=== PATIENT | male | born 1960 | race Two or more races ===

== ENCOUNTER 2019-04-09 10:12 | Inpatient (IN) | payer MEDICARE, MEDICAID ==
[~2019-04-09] VITALS: Ht 165.1 cm; Wt 50.8 kg
[2019-04-09] MEDS ORDERED: Omnipaque-300 100ml vial INJ PRN (10:15)
--- NOTE | 2019-04-09 10:16 | NUR ---
ED Nurse Note: Pt brought in by ambulance from the [facility] d/t nausea and vomiting since this morning. Pt denies abd pain. Respirations even and unlabored on room air. Vitals stable as documented. Addendum: 04/09/19 at 1110 by BDUTTON Pt c/o of abdominal pain
[2019-04-09 10:20] VITALS: BP 109/69
--- NOTE | 2019-04-09 10:30 | Emergency Room Report ---
History of Present Illness General Chief Complaint: Abdominal Pain Source: Patient, EMS Present Illness HPI Patient is a 59-year-old male past medical history of schizophrenia brought in by EMS for abdominal pain. Patient complains of 2 years of abdominal pain, nausea and vomiting. He denies any fever or chills. He cannot tell me why he specifically came in today. He denies any chest pain or shortness of breath. He denies any diarrhea or constipation. He denies any dysuria or hematuria. Allergies: Coded Allergies: No Known Allergies (Unverified , 04/09/19) Patient History Past Medical History: other - Schizophrenia Past Surgical History: kelle Social History: Reports: drug use - Marijuana use Review of Systems All Other Systems: negative except mentioned in HPI Physical Exam Vital Signs Date Time Temp Pulse Resp B/P (MAP) Pulse Ox O2 Delivery O2 Flow Rate FiO2 04/09/19 10:04 97.9 117 18 116/76 (89) 98 Room Air Sp02 EP Interpretation: reviewed, normal General Appearance: no apparent distress, alert, GCS 15, non-toxic, other - poorly groomed Head: normocephalic, atraumatic Eyes: bilateral eye normal inspection, bilateral eye PERRL ENT: hearing grossly normal, normal pharynx, no angioedema, normal voice, other - poor dentition Neck: full range of motion, supple/symm/no masses Respiratory: chest non-tender, lungs clear, normal breath sounds, speaking full sentences Cardiovascular #1: tachycardia Gastrointestinal: normal bowel sounds, soft, non-distended, no guarding, no rebound, other - Mild epigastric tenderness to palpation with no guarding or rebound old laparoscopic surgical incisions that are well-healed Rectal: deferred Musculoskeletal: back normal, normal range of motion, calf tenderness, gait/ station normal, non-tender Neurologic: alert, motor strength/tone normal, oriented x3, sensory intact, responsive, speech normal Skin: no rash Lymphatic: no adenopathy Procedures Critical Care Time Critical Care Time Total critical care time: Approximately 35 minutes. Due to a high probability of clinically significant, life threatening deterioration, the patient required my highest level of preparedness to intervene emergently and I personally spent this critical care time directly and personally managing the patient. This critical care time included obtaining a history; examining the patient; pulse oximetry; ordering and review of studies; arranging urgent treatment with development of a management plan; evaluation of patient's response to treatment ; frequent reassessment; and, discussions with other providers.This critical care time was performed to assess and manage the high probability of imminent, life-threatening deterioration that could result in multi-organ failure. It was exclusive of separately billable procedures and treating other patients and teaching time. Please see MDM section and the rest of the note for further information on patient assessment and treatment. Medical Decision Making Diagnostic Impression: Primary Impression: Upper GI bleed Additional Impression: Hypokalemia ER Course 1122 am, patient had hematemesis in the emergency room. Patient given 4 mg of IV Zofran. Patient given 80 mg of IV Protonix and started on 8 mg of Protonix per hour. Due to GI bleed patient also given 2 g of Rocephin. 1153am patient found to be hypokalemic. I have ordered for 40 mEq of IV potassium chloride. 105pm patient has had no further episodes of vomiting since the first time here. CT of the abdomen pelvis has been ordered to rule out any acute intra- abdominal pathology and is pending at the time of admission. Patient's tachycardia has improved. Patient will be admitted to a stepdown unit under the care of Dr. Cartagena Laboratory Tests Test 04/09/19 10:30 White Blood Count 12.9 K/UL (4.8-10.8) H Red Blood Count 3.11 M/UL (4.70-6.10) L Hemoglobin 9.1 G/DL (14.2-18.0) L Hematocrit 27.4 % (42.0-52.0) L Mean Corpuscular Volume 88 FL (80-99) Mean Corpuscular Hemoglobin 29.2 PG (27.0-31.0) Mean Corpuscular Hemoglobin Concent 33.2 G/DL (32.0-36.0) Red Cell Distribution Width 14.4 % (11.6-14.8) Platelet Count 401 K/UL (150-450) Mean Platelet Volume 4.9 FL (6.5-10.1) L Neutrophils (%) (Auto) 78.8 % (45.0-75.0) H Lymphocytes (%) (Auto) 10.1 % (20.0-45.0) L Monocytes (%) (Auto) 10.4 % (1.0-10.0) H Eosinophils (%) (Auto) 0.0 % (0.0-3.0) Basophils (%) (Auto) 0.7 % (0.0-2.0) Prothrombin Time 10.1 SEC (9.30-11.50) Prothrombin Time INR 0.9 (0.9-1.1) Activated Partial Thromboplast Time 23 SEC (23-33) Urine Color Yellow Urine Appearance Slightly cloudy Urine pH 8 (4.5-8.0) Urine Specific [place] 1.015 (1.005-1.035) Urine Protein Negative (NEGATIVE) Urine Glucose (UA) Negative (NEGATIVE) Urine Ketones Negative (NEGATIVE) Urine Blood Negative (NEGATIVE) Urine Nitrite Negative (NEGATIVE) Urine Bilirubin Negative (NEGATIVE) Urine Urobilinogen 4 MG/DL (0.0-1.0) H Urine Leukocyte Esterase 1+ (NEGATIVE) H Urine RBC 2-4 /HPF (0 - 0) H Urine WBC 0-2 /HPF (0 - 0) Urine Squamous Epithelial Cells Occasional /LPF Urine Amorphous Sediment Moderate /LPF (NONE) H Urine Bacteria Occasional /HPF (NONE) Sodium Level 135 MMOL/L (136-145) L Potassium Level 2.7 MMOL/L (3.5-5.1) *L Chloride Level 91 MMOL/L (98-107) L Carbon Dioxide Level 34 MMOL/L (21-32) H Anion Gap 10 mmol/L (5-15) Blood Urea Nitrogen 23 mg/dL (7-18) H Creatinine 0.8 MG/DL (0.55-1.30) Estimate Glomerular Filtration Rate > 60 mL/min (>60) Glucose Level 121 MG/DL (74-106) H Calcium Level 8.6 MG/DL (8.5-10.1) Magnesium Level 2.2 MG/DL (1.8-2.4) Total Bilirubin 0.2 MG/DL (0.2-1.0) Aspartate Amino Transferase (AST) 30 U/L (15-37) Alanine Aminotransferase (ALT) 22 U/L (12-78) Alkaline Phosphatase 75 U/L (46-116) Total Protein 7.3 G/DL (6.4-8.2) Albumin 3.2 G/DL (3.4-5.0) L Globulin 4.1 g/dL Albumin/Globulin Ratio 0.8 (1.0-2.7) L Lipase 110 U/L (73-393) Urine Opiates Screen Negative (NEGATIVE) Urine Barbiturates Screen Negative (NEGATIVE) Phencyclidine (PCP) Screen Negative (NEGATIVE) Urine Amphetamines Screen Negative (NEGATIVE) Urine Benzodiazepines Screen Positive (NEGATIVE) H Urine Cocaine Screen Negative (NEGATIVE) Urine Marijuana (THC) Screen Negative (NEGATIVE) EKG Diagnostic Results EKG Time: 10:26 EP Interpretation: MD Laverne Rate: normal Rhythm: NSR ST Segments: no acute changes ASA given to the pt in ED: No Rhythm Strip Diag. Results Rhythm Strip Time: 10:58 EP Interpretation: yes Rate: 98 Rhythm: NSR, no PVC's, no ectopy Last Vital Signs Date Time Temp Pulse Resp B/P (MAP) Pulse Ox O2 Delivery O2 Flow Rate FiO2 04/09/19 10:04 97.9 117 18 116/76 (89) 98 Room Air Disposition: ADMITTED INPATIENT Condition: Critical Physician Consult: Dr. Cartagena, hospitalist to admit to [facility] Mena Galloway M.D. Apr 09, 2019 10:30
--- NOTE | 2019-04-09 10:40 | NUR ---
ED Nurse Note: Pt had an episode of vomiting dark red/black vomit with two small bright red clots. ED MD made aware.
[2019-04-09] MEDS ORDERED: Pantoprazole 80 MG in NS 250 ML IV ONE (10:45)
[2019-04-09] MEDS ORDERED: Pantoprazole Inj IVP ONE (10:45)
[2019-04-09 11:02] LABS: BASOPHILS % (AUTO) 0.7 % (0.0-2.0); HEMATOCRIT 27.4 % (42.0-52.0); HEMOGLOBIN 9.1 G/DL (14.2-18.0); LYMPHOCYTES % (AUTO) 10.1 % (20.0-45.0); MEAN CORPUSCULAR VOLUME 88 FL (80-99); MONOCYTES % (AUTO) 10.4 % (1.0-10.0); NEUTROPHILS % (AUTO) 78.8 % (45.0-75.0); PLATELET COUNT 401 K/UL (150-450); RED BLOOD COUNT 3.11 M/UL (4.70-6.10); RED CELL DISTRIBUTION WIDTH 14.4 % (11.6-14.8); WHITE BLOOD COUNT 12.9 K/UL (4.8-10.8)
[2019-04-09 11:05] LABS: APPEARANCE,URINE SLIGHTLY CLOUDY; BILIRUBIN, URINE NEGATIVE (NEGATIVE); GLUCOSE, URINE (UA) NEGATIVE (NEGATIVE); KETONES,URINE NEGATIVE (NEGATIVE); LEUKOCYTE ESTERASE ,URINE 1+ (NEGATIVE); NITRITE,URINE NEGATIVE (NEGATIVE); PH,URINE 8 (4.5-8.0); PROTEIN,URINE NEGATIVE (NEGATIVE); UROBILINOGEN,URINE 4 MG/DL (0.0-1.0)
[2019-04-09 11:15] LABS: COLOR,URINE YELLOW
[2019-04-09 11:16] LABS: INR 0.9 (0.9-1.1)
[2019-04-09] MEDS ORDERED: cefTRIAXone 2 GM in NS 55 ML IVPB ONE (11:30)
[2019-04-09 11:48] LABS: ALANINE AMINOTRANSFERASE 22 U/L (12-78); ALBUMIN 3.2 G/DL (3.4-5.0); ALBUMIN/GLOBULIN RATIO 0.8 (1.0-2.7); ALKALINE PHOSPHATASE 75 U/L (46-116); ANION GAP 10 mmol/L (5-15); ASPARTATE AMINO TRANSFERASE 30 U/L (15-37); BILIRUBIN,TOTAL 0.2 MG/DL (0.2-1.0); BLOOD UREA NITROGEN 23 mg/dL (7-18); CALCIUM 8.6 MG/DL (8.5-10.1); CARBON DIOXIDE 34 MMOL/L (21-32); CHLORIDE 91 MMOL/L (98-107); CREATININE 0.8 MG/DL (0.55-1.30); SODIUM 135 MMOL/L (136-145)
[2019-04-09 11:50] LABS: POTASSIUM 2.7 MMOL/L (3.5-5.1)
--- NOTE | 2019-04-09 13:23 | NUR ---
NURSE NOTES: Report given to SADE Benson in SDU
--- NOTE | 2019-04-09 13:49 | NUR ---
ED Nurse Note: Pt transferred safely to SDU without incident.
[2019-04-09 14:00] VITALS: BP 126/77
--- NOTE | 2019-04-09 14:00 | NUR ---
NURSE NOTES: Received report from SADE Matamoros @ ER. The patient's belongings checked with the patient and two nurse and signed by two nurses. Unable to obtain medical, surgical, allergy, and social history as the patient refused to answer the question. Admitting EKG strip obtained. Unable to do medication reconciliation @ ER and SDU as the patient does not answer the question. The patient has R FA 20G intact and patent. No POLST noted at this time. Initial vital signs taken and notified to Dr. Ferris. Paged Dr. Ferris for admission order. Will continue plan of care.
--- NOTE | 2019-04-09 14:03 | Diagnostic Imaging Report ---
Clinical Indication: Abdominal pain Technique: No oral contrast utilized, per emergency room physician request IV administration nonionic contrast. Venous phase spiral acquisition obtained through the abdomen and pelvis. Multiplanar reconstructions were generated. Total dose length product 162 mGycm. CTDIvol(s) 3 mGy. Dose reduction achieved using automated exposure control Comparison: none Findings: Lack of enteric contrast administration limits assessment of the GI tract. There is a small to moderate-sized sliding-type hiatal hernia. The stomach is markedly distended with food and gas. The anatomy of the gastric outlet is not well visualized, but the duodenum is nondilated. No definite obstructive lesion is evident. There are mildly dilated gas-filled jejunal loops in the left upper quadrant. No definite transition point is evident, although the distal ileum appears to be nondilated.. There is mild rectal distention by feces, rectal diameter 6 cm. There is considerable retained stool throughout the colon. No definite evidence of colonic diverticulosis or diverticulitis. The appendix is not definitely visualized, but there are no definite findings to suggest acute appendicitis. There is a small fat-containing right inguinal hernia. There is slight skin thickening and infiltration of the subcutaneous fat in the retrococcygeal region and at the inferior aspect of the inner gluteal fold right of midline. There may be slight soft tissue irregularity as well. The liver demonstrates multiple cysts, as well as a few subcentimeter low-attenuation lesions which are too small to characterize. The gallbladder, bile ducts, pancreas, spleen, adrenals are unremarkable. The kidneys demonstrate a cyst on the left and bilateral subcentimeter low-attenuation lesions which are too small to characterize. No renal or ureteral calculi, hydronephrosis, or hydroureter. No retroperitoneal or mesenteric mass or adenopathy. No pelvic mass or adenopathy. There is mild bladder wall thickening. The included lung bases demonstrate some vague groundglass opacity bilaterally, as well as some scarring at the left lung base. The bones demonstrate mild degenerative changes of the lumbosacral junction. Impression: Limited assessment of the GI tract, due to lack of enteric contrast demonstration Markedly distended stomach. Suspect functional in nature given absence of obvious obstructing lesion, although occult obstructive lesion at the level of pylorus cannot be ruled out Mildly distended proximal small bowel loops. There is no definite transition point, but distal small bowel loops are nondistended. Likewise suspect functional in nature or on the basis of enteritis changes, but the possibility of partial obstruction at the level of the mid small bowel should be considered. Considerable colonic stool retention, possible mild rectal fecal impaction Slight soft tissue thickening in the retrococcygeal buttock region, could indicate early decubitus changes. Correlate with clinical findings Hepatic and left renal cysts. Subcentimeter low-attenuation renal and liver lesions, too small to characterize, most likely benign simple cysts. No further follow-up necessary Vague basilar pulmonary parenchymal groundglass opacity, nonspecific, could represent mild edema, COPD changes, inflammatory or postinflammatory changes, among other possibilities Evidence of chronic scarring at the left lung base Other findings as noted, including small fat-containing right inguinal hernia, small to moderate hiatal hernia, degenerative spondylosis The CT scanner at [facility] is accredited by the [employer] and the scans are performed using protocols designed to limit radiation exposure to as low as reasonably achievable to attain images of sufficient resolution adequate for diagnostic evaluation.
[2019-04-09] MEDS ORDERED: Sodium Chloride 550 ML IV SCH (14:30)
--- NOTE | 2019-04-09 15:00 | NUR ---
NURSE NOTES: Dr. Ferris @ the nurses' station. Notified Dr. Ferris regarding new admission and reported initial vital signs and abnormal labs including hemoglobin, WBC, Potassium, positive Benzodiazepine, and CT of abdomen and pelvis report. Obtained admission order. Will carry out the order as soon as possible. Will continue plan of care.
--- NOTE | 2019-04-09 15:11 | Diagnostic Imaging Report ---
Indication: Chest pain Technique: One view of the chest Comparison: none Findings: There is a 2 cm irregular opacity at the left lung base. The remainder of the lungs and pleural spaces are clear. The heart size is normal. The aorta is calcified. Impression: Left basilar opacity, demonstrated on subsequent CT scan to represent an area of scarring No acute process otherwise Findings discussed by phone with Dr. Fernandez at the time of interpretation
[2019-04-09] MEDS ORDERED: LORazepam Inj 2mg/ml 1ml IV PRN (15:30)
[2019-04-09 16:00] VITALS: BP 114/74
--- NOTE | 2019-04-09 16:00 | NUR ---
NURSE NOTES: The patient is stable without acute distress or shortness of breath. Will continue plan of care.
--- NOTE | 2019-04-09 18:00 | NUR ---
NURSE NOTES: The patient is stable without acute distress or shortness of breath. Will continue plan of care.
--- NOTE | 2019-04-09 19:20 | NUR ---
NURSE NOTES: Pt report received from CAROL Connors RN. pt remains stable. pt is alert and oriented times 3. pt is on Room air, satting at 98%, no acute signs symptoms of resp distress noted. pt is on casing cleaner showing NSR, no acute signs symptoms of cardiac distress noted. pt bed is low, locked, armed, bed rails up times 3, call light within reach. will follow plan of care.
--- NOTE | 2019-04-09 19:20 | NUR ---
HAND-OFF: Report given to SADE Ocampo. The patient is stable without acute distress or shortness of breath. The patient's bed in the lowest position, call light in reach, and fall and aspiration precaution reinforced. IV site intact and patent. Endorsed plan of care.
--- NOTE | 2019-04-09 19:52 | History and Physical ---
History of Present Illness General Date patient seen: Apr 09, 2019 Reason for Hospitalization: Abdominal Pain Present Illness HPI Is a 59-year-old male with a history of schizophrenia, and homelessness who presents with abdominal pain for the past 2 years and worsening over the past few days. Patient is a poor historian and refuses to answer further questions. He does endorse hematemesis a few times. He denies having any melena or hematochezia. He has never had this before. In the ER the patient was tachycardic to 117 rest of vital signs stable. Patient had one episode of hematemesis emesis with blood clots. CBC showed leukocytosis of 12.9 hemoglobin 9.1. No prior labs to compare to. Potassium low at 2.7 sodium 135. LFTs normal urinalysis with trace of esterase (patient denies symptoms of dysuria frequency or urgency.) Allergies none Medications none Past medical history see HPI Social history homeless Denies tobacco alcohol or drug use Surgical history unknown Family history unknown Allergies: Coded Allergies: No Known Allergies (Unverified , 04/09/19) Patient History Healthcare decision maker Resuscitation status Full Code Advanced Directive on File Review of Systems All Other Systems: negative except mentioned in HPI Physical Exam Last 24 Hour Vital Signs Date Time Temp Pulse Resp B/P (MAP) Pulse Ox O2 Delivery O2 Flow Rate FiO2 04/09/19 16:00 Room Air 04/09/19 16:00 97.3 89 18 114/74 (87) 97 89 04/09/19 15:31 84 04/09/19 14:31 Room Air 04/09/19 14:00 Room Air 04/09/19 14:00 97.9 85 18 126/77 (93) 99 85 04/09/19 13:51 85 04/09/19 13:50 98.0 75 18 121/74 98 Room Air 04/09/19 10:20 97.9 79 18 109/69 98 Room Air 04/09/19 10:20 79 18 Room Air 04/09/19 10:04 97.9 117 18 116/76 (89) 98 Room Air Laboratory Tests Test 04/09/19 10:30 White Blood Count 12.9 K/UL (4.8-10.8) H Red Blood Count 3.11 M/UL (4.70-6.10) L Hemoglobin 9.1 G/DL (14.2-18.0) L Hematocrit 27.4 % (42.0-52.0) L Mean Corpuscular Volume 88 FL (80-99) Mean Corpuscular Hemoglobin 29.2 PG (27.0-31.0) Mean Corpuscular Hemoglobin Concent 33.2 G/DL (32.0-36.0) Red Cell Distribution Width 14.4 % (11.6-14.8) Platelet Count 401 K/UL (150-450) Mean Platelet Volume 4.9 FL (6.5-10.1) L Neutrophils (%) (Auto) 78.8 % (45.0-75.0) H Lymphocytes (%) (Auto) 10.1 % (20.0-45.0) L Monocytes (%) (Auto) 10.4 % (1.0-10.0) H Eosinophils (%) (Auto) 0.0 % (0.0-3.0) Basophils (%) (Auto) 0.7 % (0.0-2.0) Prothrombin Time 10.1 SEC (9.30-11.50) Prothromb Time International Ratio 0.9 (0.9-1.1) Activated Partial Thromboplast Time 23 SEC (23-33) Urine Color Yellow Urine Appearance Slightly cloudy Urine pH 8 (4.5-8.0) Urine Specific [place] 1.015 (1.005-1.035) Urine Protein Negative (NEGATIVE) Urine Glucose (UA) Negative (NEGATIVE) Urine Ketones Negative (NEGATIVE) Urine Blood Negative (NEGATIVE) Urine Nitrite Negative (NEGATIVE) Urine Bilirubin Negative (NEGATIVE) Urine Urobilinogen 4 MG/DL (0.0-1.0) H Urine Leukocyte Esterase 1+ (NEGATIVE) H Urine RBC 2-4 /HPF (0 - 0) H Urine WBC 0-2 /HPF (0 - 0) Urine Squamous Epithelial Cells Occasional /LPF Urine Amorphous Sediment Moderate /LPF (NONE) H Urine Bacteria Occasional /HPF (NONE) Sodium Level 135 MMOL/L (136-145) L Potassium Level 2.7 MMOL/L (3.5-5.1) *L Chloride Level 91 MMOL/L (98-107) L Carbon Dioxide Level 34 MMOL/L (21-32) H Anion Gap 10 mmol/L (5-15) Blood Urea Nitrogen 23 mg/dL (7-18) H Creatinine 0.8 MG/DL (0.55-1.30) Estimat Glomerular Filtration Rate > 60 mL/min (>60) Glucose Level 121 MG/DL (74-106) H Calcium Level 8.6 MG/DL (8.5-10.1) Magnesium Level 2.2 MG/DL (1.8-2.4) Total Bilirubin 0.2 MG/DL (0.2-1.0) Aspartate Amino Transf (AST/SGOT) 30 U/L (15-37) Alanine Aminotransferase (ALT/SGPT) 22 U/L (12-78) Alkaline Phosphatase 75 U/L (46-116) Total Protein 7.3 G/DL (6.4-8.2) Albumin 3.2 G/DL (3.4-5.0) L Globulin 4.1 g/dL Albumin/Globulin Ratio 0.8 (1.0-2.7) L Lipase 110 U/L (73-393) Urine Opiates Screen Negative (NEGATIVE) Urine Barbiturates Screen Negative (NEGATIVE) Phencyclidine (PCP) Screen Negative (NEGATIVE) Urine Amphetamines Screen Negative (NEGATIVE) Urine Benzodiazepines Screen Positive (NEGATIVE) H Urine Cocaine Screen Negative (NEGATIVE) Urine Marijuana (THC) Screen Negative (NEGATIVE) Height (Feet): 5 Height (Inches): 6.00 Weight (Pounds): 112 Medications Current Medications Medications (Trade) Dose Ordered Sig/Raheel Route PRN Reason Start Time Stop Time Status Last Admin Dose Admin Dextrose (Dextrose 50%) 25 ml Q30M PRN IV Hypoglycemia 04/09/19 14:30 05/09/19 14:29 Dextrose (Dextrose 50%) 50 ml Q30M PRN IV Hypoglycemia 04/09/19 14:30 05/09/19 14:29 Dextrose/Sodium Chloride 1,000 ml @ 75 mls/hr [id number] IV 04/09/19 20:00 05/09/19 19:59 Iohexol (OMNIPAQUE-300 100ml) 100 ml NOW PRN INJ Radiology Procedure 04/09/19 10:15 04/11/19 10:10 Lorazepam (Ativan 2mg/ml 1ml) 0.5 mg Q4H PRN IV Agitation 04/09/19 15:30 04/16/19 15:29 Ondansetron HCl (Zofran) 4 mg Q6H PRN IVP Nausea & Vomiting 04/09/19 15:30 05/09/19 15:29 Pantoprazole (Protonix) 40 mg EVERY 12 HOURS IVP 04/09/19 21:00 05/09/19 20:59 Pantoprazole 80 mg/Sodium Chloride 250 ml @ 25 mls/hr Q10H ONCE IV 04/09/19 10:45 04/09/19 20:44 04/09/19 10:50 Objective Narrative General: WDWN male in NAD, A&O x 2. Very anxious appearing. HEENT: Normocephalic cephalic atraumatic, pupils equal round reactive to light and accommodation, nares patent and no symmetrical, no tonsillar exudates, mucous membranes moist CV: Regular rate regular rhythm, no murmurs, rubs, or gallops Pulm: Lungs clear to auscultation bilaterally. No wheezes, rhonchi, or rales GI: Soft, tenderness to deep palpation of left abdomen, nondistended, bowel sounds present Neuro: CN 2-12 intact bilaterally, no focal signs. Ext: No lower extremity edema bilaterally Skin: no rashes lesions or ulcers Msk: Joints symmetrical in upper extremity and lower extremity bilaterally, no joint swelling. Lymph: No lymphadenopathy in upper extremity and lower extremity Assessment/Plan Assessment/Plan: Is a 59-year-old male with a past medical history of schizophrenia and hypothyroidism presenting with acute on chronic abdominal pain and hematemesis. CT abdomen also shows possible small bowel obstruction and constipation. #Acute on chronic abdominal pain #Hematemesis #Suspect acute blood loss anemia 2/2 hematemesis #Sepsis (tachycardia and WBC) suspected 2/2 GI etiology #Possible small bowel obstruction -Telemetry -Stepdown unit -GI consult: Dr. Ojeda -General surgery consult: Dr. Barker -N.p.o. -Trend CBC every 8 hours -Transfuse for hemoglobin less than 7 -IV fluids -Protonix 40 mg IV twice daily -Iron studies and ferritin -Zosyn (04/09 - ) #Hypokalemia -Replete PRN #hyponatremia, suspect hypovolemic -IV fluids #Schizophrenia -Psych consult -Patient denying alcohol use but patient is a poor historian will initiate CIWAA protocol #Homelessness -Social work consult #Constipation -Bowel regimen #Suspect protein calorie malnutrition -Nutrition consult FENPPX DVTPPX: SCDs, no chemoppx due to bleed GI PPX: Protonix Fluids: IV fluids Diet: N.p.o. Lines: None PT/OT: Pending Code status: Full code Dispo: Pending Reason for Continued Hospitalization: GI bleed 73 minutes spent on this encounter. Discussed with RN, GI, general surgery. > 50 % spent on counseling and care coordination. Time of note may not reflect time patient was seen. Philippe Bourne D.O. Apr 09, 2019 19:52
[2019-04-09 20:00] VITALS: BP 107/64
[2019-04-09 20:26] LABS: HEMATOCRIT 21.9 % (42.0-52.0); HEMOGLOBIN 7.3 G/DL (14.2-18.0); MEAN CORPUSCULAR VOLUME 87 FL (80-99); PLATELET COUNT 329 K/UL (150-450); RED BLOOD COUNT 2.51 M/UL (4.70-6.10); RED CELL DISTRIBUTION WIDTH 14.2 % (11.6-14.8); WHITE BLOOD COUNT 8.7 K/UL (4.8-10.8)
[2019-04-09 20:40] LABS: ANION GAP 7 mmol/L (5-15); BLOOD UREA NITROGEN 15 mg/dL (7-18); CALCIUM 7.9 MG/DL (8.5-10.1); CARBON DIOXIDE 31 MMOL/L (21-32); CHLORIDE 97 MMOL/L (98-107); CREATININE 0.5 MG/DL (0.55-1.30); POTASSIUM 3.4 MMOL/L (3.5-5.1); SODIUM 135 MMOL/L (136-145)
--- NOTE | 2019-04-09 21:15 | Consultation ---
DATE OF CONSULTATION: 04/09/2019 CONSULTING PHYSICIAN: Mike Ojeda M.D. CHIEF COMPLAINT: Abdominal pain, coffee-ground emesis. HISTORY OF PRESENT ILLNESS: The patient is a poor historian. He presented to the hospital complaining of abdominal pain for two years, but according to the ER doctor, he vomited blood in the ER, so GI consult is requested for evaluation. PAST MEDICAL HISTORY: Schizophrenia. PAST SURGICAL HISTORY: Cholecystectomy. ALLERGIES: No known allergies. MEDICATIONS: Please see medication reconciliation list. SOCIAL HISTORY: The patient uses marijuana. Denies any IV drug abuse. Denies any tobacco abuse. Denies any alcohol abuse. PHYSICAL EXAMINATION: VITAL SIGNS: Temperature 97.9, pulse 79, respiration 18, and blood pressure 100/69. HEENT: Normocephalic and atraumatic. Sclerae are anicteric. NECK: Supple. No evidence of obvious lymphadenopathy. CARDIOVASCULAR: Regular rate and rhythm. Plus S1-S2. LUNGS: Clear to auscultation bilaterally based on the supine exam. ABDOMEN: Soft. Bowel sounds are present. Minimum diffuse abdominal tenderness to palpation. No rebound. No guarding. No peritoneal sign. EXTREMITIES: No cyanosis, no clubbing, no edema. LABORATORY DATA: White count is 12, hemoglobin 9, hematocrit 27, and platelet count 401,000. Chem 7 - sodium 135, potassium 2.7, BUN 23, and creatinine 0.8. INR is 0.9. ASSESSMENT AND PLAN: This is a 59-year-old male with coffee-ground emesis and significant anemia. Plan is to monitor H and H, transfuse as needed to keep hemoglobin above 7. The patient to be on Protonix drip. Plan to do endoscopy tomorrow for evaluation of upper GI bleeding. Mike Ojeda M.D. DR: LEONELA JOB#: [id number] CC:
[2019-04-09] MEDS: D5NS 1,000 ML IV SCH (21:41)
[2019-04-09] MEDS: Pantoprazole Inj IVP SCH (21:41)
[2019-04-10] VITALS: BP 100/65
[2019-04-10] MEDS: Piperacillin/Tazobactam 3.375 GM in NS 110 ML IVPB SCH ×4 (00:22→23:12)
[2019-04-10 04:00] VITALS: BP 105/61
[2019-04-10 04:44] LABS: HEMATOCRIT 22.3 % (42.0-52.0); HEMOGLOBIN 7.5 G/DL (14.2-18.0); MEAN CORPUSCULAR VOLUME 88 FL (80-99); PLATELET COUNT 324 K/UL (150-450); RED BLOOD COUNT 2.55 M/UL (4.70-6.10); RED CELL DISTRIBUTION WIDTH 14.4 % (11.6-14.8); WHITE BLOOD COUNT 6.1 K/UL (4.8-10.8)
[2019-04-10 05:14] LABS: PHOSPHORUS 2.4 MG/DL (2.5-4.9)
[2019-04-10 05:26] LABS: ALANINE AMINOTRANSFERASE 15 U/L (12-78); ALBUMIN 2.4 G/DL (3.4-5.0); ALBUMIN/GLOBULIN RATIO 0.7 (1.0-2.7); ALKALINE PHOSPHATASE 58 U/L (46-116); ANION GAP 6 mmol/L (5-15); ASPARTATE AMINO TRANSFERASE 18 U/L (15-37); BILIRUBIN,TOTAL 0.3 MG/DL (0.2-1.0); BLOOD UREA NITROGEN 12 mg/dL (7-18); CALCIUM 7.8 MG/DL (8.5-10.1); CARBON DIOXIDE 29 MMOL/L (21-32); CHLORIDE 100 MMOL/L (98-107); CREATININE 0.6 MG/DL (0.55-1.30); FERRITIN 20 NG/ML (8-388); POTASSIUM 3.1 MMOL/L (3.5-5.1); SODIUM 135 MMOL/L (136-145)
[2019-04-10 05:50] LABS: % IRON SATURATION 5 % (15-50); IRON 12 ug/dL (50-175); TOTAL IRON BINDING CAPACITY 249 ug/dL (250-450)
--- NOTE | 2019-04-10 07:25 | NUR ---
HAND-OFF: Report given to ROB Connors RN DAY SHIFT SDU. Pt remains stable.
--- NOTE | 2019-04-10 07:30 | NUR ---
NURSE NOTES: Received report from SADE Patel. Patient is sleeping in bed in stable condition. Pt is on room air. No s/sx of SOB, breathing is even and unlabored. Observed no presence of pain or discomfort at this time. Bed is in lowest position, brakes engaged. Call light is kept within easy reach. Will continue to monitor patient.
[2019-04-10 08:00] VITALS: BP 91/74
--- NOTE | 2019-04-10 08:00 | NUR ---
NURSE NOTES: During morning assessment, patient voiced to this nurse that they would like to leave hospital against medical advice and refusing endoscopy procedure today. Patient is alert and oriented x 4, stated first and last name, stated , stated location, forgetful of current president. Patient cannot state reason for being in hospital. Noted. Will contact Dr. Bourne.
--- NOTE | 2019-04-10 08:10 | NUR ---
NURSE NOTES: Patient is noted fully clothed in own clothing, states to this nurse they would like to leave hospital now and will sign Against Medical Advice form Noted. Will contact Dr. Bourne.
--- NOTE | 2019-04-10 08:15 | NUR ---
NURSE NOTES: Called and spoke with Dr. Bourne and reported that patient is refusing GI procedure today and would like to leave this hospital Against Medical Advice. Dr. Bourne acknowledged and informed this nurse that patient does not have capacity to make medical decisions at this time. Ordered Dr. Reed as psyche consult and sitter at bedside. Order entered, noted, and carried out. Will continue to monitor patient.
--- NOTE | 2019-04-10 08:20 | NUR ---
NURSE NOTES: Contacted and informed Dr. Reed of situation with patient and new psyche consult per Dr. Bourne. Dr. Reed acknowledged. No new orders given at this time. Per Dr. Reed will see patient.
--- NOTE | 2019-04-10 08:30 | NUR ---
NURSE NOTES: Called and informed Nurse Real Estate Assistant the need for sitter at bedside. Nurse hydrochloric area supervisor acknowledged. Sitter placed at bedside to monitor for safety. Noted.
[2019-04-10] MEDS: D5NS 1,000 ML IV SCH ×2 (08:48→21:42)
[2019-04-10] MEDS: Pantoprazole Inj IVP SCH ×2 (08:48→21:00)
--- NOTE | 2019-04-10 08:49 | NUR ---
NURSE NOTES: Patient refused all morning medications. Explained to patient risks and possible negative outcomes of not taking medications. Pt continued to refuse. Respected patient rights. Will continue to monitor patient.
--- NOTE | 2019-04-10 09:00 | NUR ---
NURSE NOTES: Patient noted with blood pressure of 91/74 HR 81. Inquired patient if this nurse may reassess blood pressure, patient refused. Explained to patient risks and possible negative outcomes of not assessing blood pressure. Patient continued to refuse x 3. Respected patient rights. Will continue to monitor patient.
--- NOTE | 2019-04-10 09:56 | NUR ---
DATA CENTER TECHNICIAN CONSULT SW received a consult for homelessness. SW met w/ pt and assessed pt's needs. Pt presents as A&O 3x, restless and tangential. Pt resides alone at [address], [place].Pt states there is no one to verify his current location. Pt provided an emergency contact: pt's sister Chayito [phone] - unknown area code. Pt did not provide verbal consent to contact Chayito. SW was unable to verify such location. Pt states his 's name is Isabel and they live separately. Pt was unable to recall Isabel's contact number. Pt denies homelessness and wants AMA. SW explained the risks of AMA. Pt verbalized understanding. Pt states he has money with him and he will take a bus back to [place]. Pt is ambulatory w/o DME. Pt denies hx of mental illness and also denies SI/HI. Pt does not share any concern/needs at this time. SW to F/U as needed. Signed: 04/10/19 at 1001 by BENTLEY OTERO <Co-Signature Required>
--- NOTE | 2019-04-10 10:20 | NUR ---
NURSE NOTES: Dr. Bourne at patient bedside, spoke to patient regarding medical needs. Dr. Bourne ordered to continue monitoring and have sitter at bedside. Reported to Dr. Bourne that patient had blood pressure of 91/74 this morning and patient refused blood pressure assessment, also patient refused ordered potassium chloride. Dr. Bourne acknowledged and gave no new orders regarding blood pressure and potassium replacement. Noted. Patient noted pacing in room, is consolable and follows commands. Sitter at bedside monitoring patient. Noted.
--- NOTE | 2019-04-10 10:20 | NUR ---
NURSE NOTES: Patient refused ordered potassium chloride. Noted.
[2019-04-10] MEDS ORDERED: LORazepam Inj 2mg/ml 1ml IV SCH (10:30)
--- NOTE | 2019-04-10 11:00 | NUR ---
NURSE NOTES: Patient refused Ativan 2 mg IV x 1. Made Dr. Bourne aware. Noted.
--- NOTE | 2019-04-10 11:45 | NUR ---
NURSE NOTES: Dr. Ojeda at nurse station. Informed this nurse that they spoke with patient regarding GI procedure and patient refused. Noted. Dr. Ojeda started patient on clear liquid diet. Order entered, noted, and carried out.
--- NOTE | 2019-04-10 12:09 | General Progress Note ---
Assessment/Plan Problem List: (1) Homelessness ICD Codes: Z59.0 - Homelessness SNOMED: 06796792 (2) Schizophrenia ICD Codes: F20.9 - Schizophrenia, unspecified SNOMED: 55329787 (3) Acute blood loss anemia ICD Codes: D62 - Acute posthemorrhagic anemia SNOMED: 005854699 (4) Upper GI bleed ICD Codes: K92.2 - Gastrointestinal hemorrhage, unspecified SNOMED: 00811510 Assessment/Plan: ppi iv iron monitor H&H patient is refusing to go down for EGD pending psych consult Subjective ROS Limited/Unobtainable: Yes Allergies: Coded Allergies: No Known Allergies (Unverified , 04/09/19) Objective Last 24 Hour Vital Signs Date Time Temp Pulse Resp B/P (MAP) Pulse Ox O2 Delivery O2 Flow Rate FiO2 04/10/19 08:00 Room Air 04/10/19 08:00 97.7 81 20 91/74 (80) 100 81 04/10/19 04:00 Room Air 04/10/19 04:00 97.9 82 20 105/61 (76) 99 82 04/10/19 04:00 76 04/10/19 00:00 75 04/10/19 00:00 98.2 80 19 100/65 (77) 99 80 04/10/19 00:00 Room Air 04/09/19 20:00 Room Air 04/09/19 20:00 98.2 76 18 107/64 (78) 98 76 04/09/19 20:00 71 04/09/19 16:00 Room Air 04/09/19 16:00 97.3 89 18 114/74 (87) 97 89 04/09/19 15:31 84 04/09/19 14:31 Room Air 04/09/19 14:00 Room Air 04/09/19 14:00 97.9 85 18 126/77 (93) 99 85 04/09/19 13:51 85 04/09/19 13:50 98.0 75 18 121/74 98 Room Air Intake and Output 04/09/19 04/10/19 19:00 07:00 Intake Total 0 ml 935.0 ml Output Total 401 ml Balance -401 ml 935.0 ml Intake Oral 0 ml IV Total 935.0 ml Output Urine Total 1 ml Emesis 400 ml # Voids 1 Laboratory Tests 04/09/19 20:10: White Blood Count 8.7, Red Blood Count 2.51L, Hemoglobin 7.3L, Hematocrit 21.9L , Mean Corpuscular Volume 87, Mean Corpuscular Hemoglobin 29.2, Mean Corpuscular Hemoglobin Concent 33.5, Red Cell Distribution Width 14.2, Platelet Count 329, Mean Platelet Volume 4.9L, Neutrophils (%) (Auto) , Lymphocytes (%) ( Auto) , Monocytes (%) (Auto) , Eosinophils (%) (Auto) , Basophils (%) (Auto) , Differential Total Cells Counted 100, Neutrophils % (Manual) 76H, Lymphocytes % (Manual) 18L, Monocytes % (Manual) 5, Eosinophils % (Manual) 0, Basophils % ( Manual) 1, Band Neutrophils 0, Platelet Estimate Adequate, Platelet Morphology Normal, Red Blood Cell Morphology Normal, Sodium Level 135L, Potassium Level 3.4L, Chloride Level 97L, Carbon Dioxide Level 31, Anion Gap 7, Blood Urea Nitrogen 15, Creatinine 0.5L, Estimat Glomerular Filtration Rate > 60, Glucose Level 115H, Calcium Level 7.9L 04/10/19 04:00: White Blood Count 6.1, Red Blood Count 2.55L, Hemoglobin 7.5L, Hematocrit 22.3L , Mean Corpuscular Volume 88, Mean Corpuscular Hemoglobin 29.4, Mean Corpuscular Hemoglobin Concent 33.6, Red Cell Distribution Width 14.4, Platelet Count 324, Mean Platelet Volume 4.8L, Neutrophils (%) (Auto) , Lymphocytes (%) ( Auto) , Monocytes (%) (Auto) , Eosinophils (%) (Auto) , Basophils (%) (Auto) , Differential Total Cells Counted 100, Neutrophils % (Manual) 71, Lymphocytes % ( Manual) 17L, Monocytes % (Manual) 10, Eosinophils % (Manual) 1, Basophils % ( Manual) 1, Band Neutrophils 0, Platelet Estimate Adequate, Platelet Morphology Normal, Sodium Level 135L, Potassium Level 3.1L, Chloride Level 100, Carbon Dioxide Level 29, Anion Gap 6, Blood Urea Nitrogen 12, Creatinine 0.6, Estimat Glomerular Filtration Rate > 60, Glucose Level 82, Calcium Level 7.8L, Hypochromasia 3+, Anisocytosis 1+, Prothrombin Time 10.5, Prothromb Time International Ratio 1.0, Activated Partial Thromboplast Time 27, Phosphorus Level 2.4L, Magnesium Level 1.8, Iron Level 12L, Total Iron Binding Capacity 249L, Percent Iron Saturation 5L, Unsaturated Iron Binding 237, Ferritin 20, Total Bilirubin 0.3, Aspartate Amino Transf (AST/SGOT) 18, Alanine Aminotransferase (ALT/SGPT) 15, Alkaline Phosphatase 58, Total Protein 5.8L, Albumin 2.4L, Globulin 3.4, Albumin/Globulin Ratio 0.7L, Vitamin B12 Level 430, Folate 19.7 Height (Feet): 5 Height (Inches): 5.00 Weight (Pounds): 112 General Appearance: alert EENT: normal ENT inspection Neck: supple Cardiovascular: normal rate Respiratory/Chest: decreased breath sounds Abdomen: normal bowel sounds, non tender, soft Extremities: non-tender Mike Ojeda MD Apr 10, 2019 12:09
--- NOTE | 2019-04-10 14:12 | NUR ---
RD ASSESSMENT & RECOMMENDATIONS SEE CARE ACTIVITY FOR COMPLETE ASSESSMENT DAILY ESTIMATED NEEDS: Needs based on Underweight, 50.9kg 30-35 kcals/kg 6490-0292 total kcals 1-1.5 g protein/kg 51-76 g total protein 25-30 mL/kg 3243-6285 total fluid mLs NUTRITION DIAGNOSIS: Altered nutrition related lab values r/t clinical status, possible GIB as evidenced by low Hgb (7.5) w/ bloody emesis, low Na (135), low K (3.1), low phos (2.4). CURRENT DIET: CLD PO DIET RECOMMENDATIONS: Soft diet as tolerated as medically able ADDITIONAL RECOMMENDATIONS: 1) Obtain a calibrated bed scale wt as able 2) replete lytes as able, pt refusing all meds/ IV 3) F/up w/ GI 4) Add Ensure Clear to CLD Add Ensure Enlive to advanced diet
--- NOTE | 2019-04-10 16:00 | NUR ---
NURSE NOTES: Contacted and informed Dr. Bourne that patient is still voicing to leave against medical advice, Dr. Reed has not yet seen patient. Patient is informed that Dr. Reed that they still need to be assessed by Dr. Reed. Patient "says 'ok' the begins pacing room." Patient is noted with anxiety, but follow simple commands. Sitter is at bedside monitoring for Safety. Dr. Bourne acknowledged and informed this nurse that patient needs to be seen by Dr. Reed. Noted. Will endorse accordingly. Charge nurse made aware. Will continue to monitor patient.
--- NOTE | 2019-04-10 16:53 | NUR ---
NURSE NOTES: Patient refused scheduled IV antibiotic, Zosyn. Explained to patient risks and possible negative outcomes of not taking medication. Patient continued to refuse medication. Respected patient rights. Will continue to monitor patient. Also made Dr. Bourne that patient refused CBC lab draw and MD is aware of Hgb 7.5 today, ordered to monitor at this time. Noted. Will continue to monitor patient.
--- NOTE | 2019-04-10 17:07 | NUR ---
CASE MANAGEMENT: INITIAL REVIEW 04/09/2019 59 YO M [address]AE FROM [address] CC: ABD PAIN PMHx: Schizophrenia. drug use - Marijuana use. SI: UPPER GI BLEED T 97.9 HR 117 RR 18 B/P 116/76 SATS 98% ON RA LABS: WBC 12.9 NA 135 K 2.7 CL 91 CO2 34 BUN 23 GLU 121 IS: ZOFRAN IV X1 PEPCID IV X1 NS BOLUS X1 PROTONIX IV X1 CEFTRIAXONE IV X1 EKG Rate: normal Rhythm: NSR ST Segments: no acute changes CT A/P Impression: Limited assessment of the GI tract, due to lack of enteric contrast demonstration CXR Impression: Left basilar opacity, demonstrated on subsequent CT scan to represent an area of scarring No acute process otherwise PATIENT ADMITTED TO SDU 04/09/2019 @ 1214 DCP: PATIENT TO BE DISCHARGED TO APPROPRIATE LOCATION ONCE MEDICALLY CLEARED. PLAN OF CARE: VENOUS DUPLEX SITTER AT BEDSIDE CLD SSW Addendum: 04/10/19 at 1720 by Geena Baer CM INTERQUAL MET
--- NOTE | 2019-04-10 19:30 | NUR ---
NURSE NOTES: Pt report received from ROB Connors DAY SHIFT RN SDU. pt remain stable. pt is alert and oriented times 3, able to follow commands. pt is on room air, able to sat at 99%, no signs symptoms of cardiac distress noted. pt refuses monitoring manager. MD AGUILAR aware. animal care service worker mita at bed side monitoring pt. will follow plan of care.
--- NOTE | 2019-04-10 19:30 | NUR ---
HAND-OFF: Report given to SADE Patel.
[2019-04-10] MEDS: Iron Sucrose 100 MG in NS 55 ML IV SCH (21:00)
[2019-04-10 21:35] LABS: HEMATOCRIT 19.6 % (42.0-52.0); MEAN CORPUSCULAR VOLUME 86 FL (80-99); PLATELET COUNT 302 K/UL (150-450); RED BLOOD COUNT 2.27 M/UL (4.70-6.10); RED CELL DISTRIBUTION WIDTH 13.9 % (11.6-14.8); WHITE BLOOD COUNT 4.5 K/UL (4.8-10.8)
[2019-04-10 21:40] LABS: HEMOGLOBIN 6.5 G/DL (14.2-18.0)
--- NOTE | 2019-04-10 21:49 | General Progress Note ---
Assessment/Plan Assessment/Plan: Is a 59-year-old male with a past medical history of schizophrenia and hypothyroidism presenting with acute on chronic abdominal pain and hematemesis. CT abdomen also shows possible small bowel obstruction and constipation. #Acute on chronic abdominal pain #Hematemesis #Suspect acute blood loss anemia 2/2 hematemesis #Sepsis (tachycardia and WBC) suspected 2/2 GI etiology #Possible small bowel obstruction -Telemetry -Stepdown unit -GI consult: Dr. Ojeda -General surgery consult: Dr. Barker -N.p.o. -Trend CBC every 8 hours -Transfuse for hemoglobin less than 7 -IV fluids -Protonix 40 mg IV twice daily -Iron studies and ferritin -Zosyn (04/09 - ) #Hypokalemia -Replete PRN #hyponatremia, suspect hypovolemic -IV fluids #Schizophrenia -Psych consult -Patient denying alcohol use but patient is a poor historian will initiate CIWAA protocol #Homelessness -Social work consult #Constipation -Bowel regimen #Suspect protein calorie malnutrition -Nutrition consult FENPPX DVTPPX: SCDs, no chemoppx due to bleed GI PPX: Protonix Fluids: IV fluids Diet: N.p.o. Lines: None PT/OT: Pending Code status: Full code Dispo: Pending Reason for Continued Hospitalization: GI bleed 73 minutes spent on this encounter. Discussed with RN, GI, general surgery. > 50 % spent on counseling and care coordination. Time of note may not reflect time patient was seen. Subjective Allergies: Coded Allergies: No Known Allergies (Unverified , 04/09/19) Objective Last 24 Hour Vital Signs Date Time Temp Pulse Resp B/P (MAP) Pulse Ox O2 Delivery O2 Flow Rate FiO2 04/10/19 16:00 Room Air 04/10/19 12:00 Room Air 04/10/19 08:00 Room Air 04/10/19 08:00 97.7 81 20 91/74 (80) 100 81 04/10/19 04:00 Room Air 04/10/19 04:00 97.9 82 20 105/61 (76) 99 82 04/10/19 04:00 76 04/10/19 00:00 75 04/10/19 00:00 98.2 80 19 100/65 (77) 99 80 04/10/19 00:00 Room Air Intake and Output 04/09/19 04/10/19 19:00 07:00 Intake Total 0 ml 935.0 ml Output Total 401 ml Balance -401 ml 935.0 ml Intake Oral 0 ml IV Total 935.0 ml Output Urine Total 1 ml Emesis 400 ml # Voids 1 Laboratory Tests 04/10/19 04:00: White Blood Count 6.1, Red Blood Count 2.55L, Hemoglobin 7.5L, Hematocrit 22.3L , Mean Corpuscular Volume 88, Mean Corpuscular Hemoglobin 29.4, Mean Corpuscular Hemoglobin Concent 33.6, Red Cell Distribution Width 14.4, Platelet Count 324, Mean Platelet Volume 4.8L, Neutrophils (%) (Auto) , Lymphocytes (%) ( Auto) , Monocytes (%) (Auto) , Eosinophils (%) (Auto) , Basophils (%) (Auto) , Differential Total Cells Counted 100, Neutrophils % (Manual) 71, Lymphocytes % ( Manual) 17L, Monocytes % (Manual) 10, Eosinophils % (Manual) 1, Basophils % ( Manual) 1, Band Neutrophils 0, Platelet Estimate Adequate, Platelet Morphology Normal, Hypochromasia 3+, Anisocytosis 1+, Prothrombin Time 10.5, Prothromb Time International Ratio 1.0, Activated Partial Thromboplast Time 27, Sodium Level 135L, Potassium Level 3.1L, Chloride Level 100, Carbon Dioxide Level 29, Anion Gap 6, Blood Urea Nitrogen 12, Creatinine 0.6, Estimat Glomerular Filtration Rate > 60, Glucose Level 82, Calcium Level 7.8L, Phosphorus Level 2.4L, Magnesium Level 1.8, Iron Level 12L, Total Iron Binding Capacity 249L, Percent Iron Saturation 5L, Unsaturated Iron Binding 237, Ferritin 20, Total Bilirubin 0.3, Aspartate Amino Transf (AST/SGOT) 18, Alanine Aminotransferase ( ALT/SGPT) 15, Alkaline Phosphatase 58, Total Protein 5.8L, Albumin 2.4L, Globulin 3.4, Albumin/Globulin Ratio 0.7L, Vitamin B12 Level 430, Folate 19.7 04/10/19 20:15: White Blood Count 4.5L, Red Blood Count 2.27L, Hemoglobin 6.5*L, Hematocrit 19.6L, Mean Corpuscular Volume 86, Mean Corpuscular Hemoglobin 28.6, Mean Corpuscular Hemoglobin Concent 33.2, Red Cell Distribution Width 13.9, Platelet Count 302, Mean Platelet Volume 4.8L, Neutrophils (%) (Auto) , Lymphocytes (%) ( Auto) , Monocytes (%) (Auto) , Eosinophils (%) (Auto) , Basophils (%) (Auto) , Neutrophils % (Manual) [Pending], Lymphocytes % (Manual) [Pending], Platelet Estimate [Pending], Platelet Morphology [Pending] Height (Feet): 5 Height (Inches): 5.00 Weight (Pounds): 112 Philippe Bourne D.O. Apr 10, 2019 21:49
--- NOTE | 2019-04-10 21:53 | NUR ---
NURSE NOTES: [facility] C[facility]/ LAB called to report CRITICAL LAB VALUE HGB 6.5. called MD HERNANDEZ office and spoke to PARAG who will relay critical lab value. [id number]/10/19 doctor PRASANNA called to cover to DOCTOR AGUILAR. reported HGB trend to DOCTOR MIMS. DOCTOR MIMS understands that pt has been refusing all meds in hospital, pt refused EGD that was scheduled today, and how pt has been refusing vital signs. Doctor MIMS stated offer 1 unit PRBC. DOCTOR MIMS stated she understands if pt refuses 1 U PRBC.
--- NOTE | 2019-04-10 22:04 | NUR ---
NURSE NOTES: Spoke to pt with career services manager Miat by bed side. explained that pts "blood" (HGB) is low, and how his lab values are "not looking good". explained to pt that he needs "blood" (1 U PRBC). PT REFUSED 1 U PRBC that DOCTOR PRASANNA offered. will continue to monitor. career services manager mita by bed side.
--- NOTE | 2019-04-10 22:21 | Consultation ---
History of Present Illness General Date patient seen: Apr 10, 2019 Reason for Hospitalization: Abdominal Pain Present Illness HPI This is a 59-year-old male with past medical history of schizophrenia who was brought in to [facility] by EMS for abdominal pain. Patient complains of 2 years of abdominal pain, nausea and vomiting. He denies any fever or chills. He denies any chest pain or shortness of breath. He denies any diarrhea or constipation. He denies any dysuria or hematuria. States pain cramping for past two years and does not know why. states sees blood in his stool with BM's sometimes. not sure how often. Admitted for care and management. Surgery called to evaluate for abd pain and rectal bleeding. patient seen, chart reviewed, patient examined. He states since admission pain resolved and no longer bleedings. wants to go home and leave hospital. he is homeless and does not seem cooperative with care as he keeps walking away during exam. he was offered colonoscopy as indicated and recommended but refused. states he does not want any intervention. Allergies: Coded Allergies: No Known Allergies (Unverified , 04/09/19) Patient History Limited by: medical condition History Provided By: Patient, Medical Record, PMD Healthcare decision maker Resuscitation status Full Code Advanced Directive on File Past Medical/Surgical History Past Medical/Surgical History: (1) Upper GI bleed (2) Hypokalemia (3) Sepsis (4) Bowel obstruction (5) Acute blood loss anemia (6) Schizophrenia Review of Systems Review of Symptoms General ROS: no weight loss or fever Psychological ROS: no depression or mood changes, no memory loss Ophthalmic ROS: no visual changes or eye irritation ENT ROS: no nasal congestion, hearing loss, dizziness Allergy and Immunology ROS: no allergic symptoms or urticaria Hematological and Lymphatic ROS: no swollen glands, unusual bleeding or bruising Endocrine ROS: no polyuria, polydipsia, weight changes, temperature intolerance Respiratory ROS: no cough, shortness of breath, or wheezing Cardiovascular ROS: no chest pain or dyspnea on exertion Gastrointestinal ROS: denies abdominal pain, bright red blood in stool. Musculoskeletal ROS: no myalgias or arthralgias Neurological ROS: no TIA or stroke symptoms Dermatological ROS: no new or changing skin lesions, rashes or pruritis Physical Exam Physical Exam General appearance: alert, cooperative, no distress, appears stated age Head: Normocephalic, without obvious abnormality, atraumatic Eyes: conjunctivae/corneas clear. PERRL, EOM's intact. Fundi benign Throat: Lips, mucosa, and tongue normal. Teeth and gums normal Neck: supple, symmetrical, trachea midline, no adenopathy, thyroid: not enlarged, symmetric, no tenderness/mass/nodules, no carotid bruit and no JVD Lungs: clear to auscultation bilaterally Heart: regular rate and rhythm, S1, S2 normal, no murmur, click, rub or gallop Abdomen: soft, non-tender. Bowel sounds normal. No masses, no organomegaly Extremities: extremities normal, atraumatic, no cyanosis or edema Pulses: 2+ and symmetric Skin: Skin color, texture, turgor normal. No rashes or lesions Neurologic: Grossly normal Last 24 Hour Vital Signs Date Time Temp Pulse Resp B/P (MAP) Pulse Ox O2 Delivery O2 Flow Rate FiO2 04/10/19 16:00 Room Air 04/10/19 12:00 Room Air 04/10/19 08:00 Room Air 04/10/19 08:00 97.7 81 20 91/74 (80) 100 81 04/10/19 04:00 Room Air 04/10/19 04:00 97.9 82 20 105/61 (76) 99 82 04/10/19 04:00 76 04/10/19 00:00 75 04/10/19 00:00 98.2 80 19 100/65 (77) 99 80 04/10/19 00:00 Room Air Intake and Output 04/09/19 04/10/19 18:59 06:59 Intake Total 0 ml 935.0 ml Output Total 401 ml Balance -401 ml 935.0 ml Intake Oral 0 ml IV Total 935.0 ml Output Urine Total 1 ml Emesis 400 ml # Voids 1 Laboratory Tests Test 04/10/19 04:00 04/10/19 20:15 White Blood Count 6.1 K/UL (4.8-10.8) 4.5 K/UL (4.8-10.8) L Red Blood Count 2.55 M/UL (4.70-6.10) L 2.27 M/UL (4.70-6.10) L Hemoglobin 7.5 G/DL (14.2-18.0) L 6.5 G/DL (14.2-18.0) *L Hematocrit 22.3 % (42.0-52.0) L 19.6 % (42.0-52.0) L Mean Corpuscular Volume 88 FL (80-99) 86 FL (80-99) Mean Corpuscular Hemoglobin 29.4 PG (27.0-31.0) 28.6 PG (27.0-31.0) Mean Corpuscular Hemoglobin Concent 33.6 G/DL (32.0-36.0) 33.2 G/DL (32.0-36.0) Red Cell Distribution Width 14.4 % (11.6-14.8) 13.9 % (11.6-14.8) Platelet Count 324 K/UL (150-450) 302 K/UL (150-450) Mean Platelet Volume 4.8 FL (6.5-10.1) L 4.8 FL (6.5-10.1) L Neutrophils (%) (Auto) % (45.0-75.0) % (45.0-75.0) Lymphocytes (%) (Auto) % (20.0-45.0) % (20.0-45.0) Monocytes (%) (Auto) % (1.0-10.0) % (1.0-10.0) Eosinophils (%) (Auto) % (0.0-3.0) % (0.0-3.0) Basophils (%) (Auto) % (0.0-2.0) % (0.0-2.0) Differential Total Cells Counted 100 Neutrophils % (Manual) 71 % (45-75) Pending Lymphocytes % (Manual) 17 % (20-45) L Pending Monocytes % (Manual) 10 % (1-10) Eosinophils % (Manual) 1 % (0-3) Basophils % (Manual) 1 % (0-2) Band Neutrophils 0 % (0-8) Platelet Estimate Adequate Pending Platelet Morphology Normal Pending Hypochromasia 3+ Anisocytosis 1+ Prothrombin Time 10.5 SEC (9.30-11.50) Prothromb Time International Ratio 1.0 (0.9-1.1) Activated Partial Thromboplast Time 27 SEC (23-33) Sodium Level 135 MMOL/L (136-145) L Potassium Level 3.1 MMOL/L (3.5-5.1) L Chloride Level 100 MMOL/L (98-107) Carbon Dioxide Level 29 MMOL/L (21-32) Anion Gap 6 mmol/L (5-15) Blood Urea Nitrogen 12 mg/dL (7-18) Creatinine 0.6 MG/DL (0.55-1.30) Estimat Glomerular Filtration Rate > 60 mL/min (>60) Glucose Level 82 MG/DL (74-106) Calcium Level 7.8 MG/DL (8.5-10.1) L Phosphorus Level 2.4 MG/DL (2.5-4.9) L Magnesium Level 1.8 MG/DL (1.8-2.4) Iron Level 12 ug/dL (50-175) L Total Iron Binding Capacity 249 ug/dL (250-450) L Percent Iron Saturation 5 % (15-50) L Unsaturated Iron Binding 237 ug/dL (112-346) Ferritin 20 NG/ML (8-388) Total Bilirubin 0.3 MG/DL (0.2-1.0) Aspartate Amino Transf (AST/SGOT) 18 U/L (15-37) Alanine Aminotransferase (ALT/SGPT) 15 U/L (12-78) Alkaline Phosphatase 58 U/L (46-116) Total Protein 5.8 G/DL (6.4-8.2) L Albumin 2.4 G/DL (3.4-5.0) L Globulin 3.4 g/dL Albumin/Globulin Ratio 0.7 (1.0-2.7) L Vitamin B12 Level 430 PG/ML (193-986) Folate 19.7 NG/ML (8.6-58.9) Height (Feet): 5 Height (Inches): 5.00 Weight (Pounds): 112 Medications Current Medications Medications (Trade) Dose Ordered Sig/Raheel Route PRN Reason Start Time Stop Time Status Last Admin Dose Admin Dextrose (Dextrose 50%) 25 ml Q30M PRN IV Hypoglycemia 04/09/19 14:30 05/09/19 14:29 Dextrose (Dextrose 50%) 50 ml Q30M PRN IV Hypoglycemia 04/09/19 14:30 05/09/19 14:29 Dextrose/Sodium Chloride 1,000 ml @ 75 mls/hr [id number] IV 04/09/19 20:00 05/09/19 19:59 04/09/19 21:41 Iohexol (OMNIPAQUE-300 100ml) 100 ml NOW PRN INJ Radiology Procedure 04/09/19 10:15 04/11/19 10:10 Iron Sucrose 100 mg/Sodium Chloride 60 ml @ 240 mls/hr BEDTIME IV 04/10/19 21:00 04/14/19 21:14 Lorazepam (Ativan 2mg/ml 1ml) 0.5 mg Q4H PRN IV Agitation 04/09/19 15:30 04/16/19 15:29 Ondansetron HCl (Zofran) 4 mg Q6H PRN IVP Nausea & Vomiting 04/09/19 15:30 05/09/19 15:29 Pantoprazole (Protonix) 40 mg EVERY 12 HOURS IVP 04/09/19 21:00 05/09/19 20:59 04/09/19 21:41 Piperacillin Sod/ Tazobactam Sod 3.375 gm/Sodium Chloride 110 ml @ 27.5 mls/hr Q8H IVPB 04/10/19 00:00 04/17/19 00:00 04/10/19 00:22 Assessment/Plan Problem List: (1) Upper GI bleed Assessment & Plan: GI Bleed states blood noted in BM does not want colonoscopy recommend colonoscopy patient refused defer to GI psych eval thank you ICD Codes: K92.2 - Gastrointestinal hemorrhage, unspecified SNOMED: 12771188 (2) Bowel obstruction Assessment & Plan: CT reviewed. patient with BM and flatus. no abd tenderness and no c/o pain now likely compression of bowel no n/v/f/c stable no acute surgical intervention planned okay for diet will follow with exams thank you Findings: Lack of enteric contrast administration limits assessment of the GI tract. There is a small to moderate-sized sliding-type hiatal hernia. The stomach is markedly distended with food and gas. The anatomy of the gastric outlet is not well visualized, but the duodenum is nondilated. No definite obstructive lesion is evident. There are mildly dilated gas-filled jejunal loops in the left upper quadrant. No definite transition point is evident, although the distal ileum appears to be nondilated.. There is mild rectal distention by feces, rectal diameter 6 cm. There is considerable retained stool throughout the colon. No definite evidence of colonic diverticulosis or diverticulitis. The appendix is not definitely visualized, but there are no definite findings to suggest acute appendicitis. There is a small fat-containing right inguinal hernia. There is slight skin thickening and infiltration of the subcutaneous fat in the retrococcygeal region and at the inferior aspect of the inner gluteal fold right of midline. There may be slight soft tissue irregularity as well. The liver demonstrates multiple cysts, as well as a few subcentimeter low- attenuation lesions which are too small to characterize. The gallbladder, bile ducts, pancreas, spleen, adrenals are unremarkable. The kidneys demonstrate a cyst on the left and bilateral subcentimeter low-attenuation lesions which are too small to characterize. No renal or ureteral calculi, hydronephrosis, or hydroureter. No retroperitoneal or mesenteric mass or adenopathy. No pelvic mass or adenopathy. There is mild bladder wall thickening. The included lung bases demonstrate some vague groundglass opacity bilaterally, as well as some scarring at the left lung base. The bones demonstrate mild degenerative changes of the lumbosacral junction. Impression: Limited assessment of the GI tract, due to lack of enteric contrast demonstration Markedly distended stomach. Suspect functional in nature given absence of obvious obstructing lesion, although occult obstructive lesion at the level of pylorus cannot be ruled out Mildly distended proximal small bowel loops. There is no definite transition point, but distal small bowel loops are nondistended. Likewise suspect functional in nature or on the basis of enteritis changes, but the possibility of partial obstruction at the level of the mid small bowel should be considered. Considerable colonic stool retention, possible mild rectal fecal impaction Slight soft tissue thickening in the retrococcygeal buttock region, could indicate early decubitus changes. Correlate with clinical findings Hepatic and left renal cysts. Subcentimeter low-attenuation renal and liver lesions, too small to characterize, most likely benign simple cysts. No further follow-up necessary Vague basilar pulmonary parenchymal groundglass opacity, nonspecific, could represent mild edema, COPD changes, inflammatory or postinflammatory changes, among other possibilities Evidence of chronic scarring at the left lung base Other findings as noted, including small fat-containing right inguinal hernia, small to moderate hiatal hernia, degenerative spondylosis ICD Codes: K56.609 - Unspecified intestinal obstruction, unspecified as to partial versus complete obstruction SNOMED: 80726090 Assessment/Plan: of note, this is a late entry as patient was see at 2pm this afternoon and examined. Arron Barker Apr 10, 2019 22:21
--- NOTE | 2019-04-10 22:31 | General Progress Note ---
Assessment/Plan Assessment/Plan: Is a 59-year-old male with a past medical history of schizophrenia and hypothyroidism presenting with acute on chronic abdominal pain and hematemesis. CT abdomen also shows possible small bowel obstruction and constipation. #Acute on chronic abdominal pain #Hematemesis #Suspect acute blood loss anemia 2/2 hematemesis #Sepsis (tachycardia and WBC) suspected 2/2 GI etiology #Possible small bowel obstruction. No obstruction per Surgery -Telemetry -Stepdown unit -GI consult: Dr. Ojeda -General surgery consult: Dr. Barker -N.p.o. -Trend CBC every 8 hours -Transfuse for hemoglobin less than 7 -IV fluids -Protonix 40 mg IV twice daily -Iron studies and ferritin -Zosyn (04/09 - ) -Patient currently refusing EGD. Lacks capacity. Pending Psych eval. Sitter at bedside for re-orientation #capacity decision making The patient is alert and oriented x 3 but does not have insight into his medical condition. Cannot state why he is in the hospital. Patient does not have rational decision making capacity therefore patient lacks capacity. -Appreciate psychiatry evaluation as well. Patient has agreed to stay to be evaluated. #Hypokalemia -Replete PRN #hyponatremia, suspect hypovolemic -IV fluids #Schizophrenia -Psych consult -Patient denying alcohol use but patient is a poor historian will initiate CIWAA protocol #Homelessness -Social work consult #Constipation -Bowel regimen #Suspect protein calorie malnutrition -Nutrition consult FENPPX DVTPPX: SCDs, no chemoppx due to bleed GI PPX: Protonix Fluids: IV fluids Diet: N.p.o. Lines: None PT/OT: Pending Code status: Full code Dispo: Pending Reason for Continued Hospitalization: GI bleed 38 minutes spent on this encounter. Discussed with RN, GI, general surgery, psychiatry. > 50% spent on counseling and care coordination. Time of note may not reflect time patient was seen. Subjective Allergies: Coded Allergies: No Known Allergies (Unverified , 04/09/19) All Systems: reviewed and negative except above Subjective No acute events overnight per nursing. Patient refusing EGD. Cannot state why he is here. A&O x 3 (does not know location). No further episodes of chest pain or SOB. No abdominal pain. Melena or hematochezia or hematemesis Objective Last 24 Hour Vital Signs Date Time Temp Pulse Resp B/P (MAP) Pulse Ox O2 Delivery O2 Flow Rate FiO2 04/10/19 16:00 Room Air 04/10/19 12:00 Room Air 04/10/19 08:00 Room Air 04/10/19 08:00 97.7 81 20 91/74 (80) 100 81 04/10/19 04:00 Room Air 04/10/19 04:00 97.9 82 20 105/61 (76) 99 82 04/10/19 04:00 76 04/10/19 00:00 75 04/10/19 00:00 98.2 80 19 100/65 (77) 99 80 04/10/19 00:00 Room Air Intake and Output 04/09/19 04/10/19 19:00 07:00 Intake Total 0 ml 935.0 ml Output Total 401 ml Balance -401 ml 935.0 ml Intake Oral 0 ml IV Total 935.0 ml Output Urine Total 1 ml Emesis 400 ml # Voids 1 Laboratory Tests 04/10/19 04:00: White Blood Count 6.1, Red Blood Count 2.55L, Hemoglobin 7.5L, Hematocrit 22.3L , Mean Corpuscular Volume 88, Mean Corpuscular Hemoglobin 29.4, Mean Corpuscular Hemoglobin Concent 33.6, Red Cell Distribution Width 14.4, Platelet Count 324, Mean Platelet Volume 4.8L, Neutrophils (%) (Auto) , Lymphocytes (%) ( Auto) , Monocytes (%) (Auto) , Eosinophils (%) (Auto) , Basophils (%) (Auto) , Differential Total Cells Counted 100, Neutrophils % (Manual) 71, Lymphocytes % ( Manual) 17L, Monocytes % (Manual) 10, Eosinophils % (Manual) 1, Basophils % ( Manual) 1, Band Neutrophils 0, Platelet Estimate Adequate, Platelet Morphology Normal, Hypochromasia 3+, Anisocytosis 1+, Prothrombin Time 10.5, Prothromb Time International Ratio 1.0, Activated Partial Thromboplast Time 27, Sodium Level 135L, Potassium Level 3.1L, Chloride Level 100, Carbon Dioxide Level 29, Anion Gap 6, Blood Urea Nitrogen 12, Creatinine 0.6, Estimat Glomerular Filtration Rate > 60, Glucose Level 82, Calcium Level 7.8L, Phosphorus Level 2.4L, Magnesium Level 1.8, Iron Level 12L, Total Iron Binding Capacity 249L, Percent Iron Saturation 5L, Unsaturated Iron Binding 237, Ferritin 20, Total Bilirubin 0.3, Aspartate Amino Transf (AST/SGOT) 18, Alanine Aminotransferase ( ALT/SGPT) 15, Alkaline Phosphatase 58, Total Protein 5.8L, Albumin 2.4L, Globulin 3.4, Albumin/Globulin Ratio 0.7L, Vitamin B12 Level 430, Folate 19.7 04/10/19 20:15: White Blood Count 4.5L, Red Blood Count 2.27L, Hemoglobin 6.5*L, Hematocrit 19.6L, Mean Corpuscular Volume 86, Mean Corpuscular Hemoglobin 28.6, Mean Corpuscular Hemoglobin Concent 33.2, Red Cell Distribution Width 13.9, Platelet Count 302, Mean Platelet Volume 4.8L, Neutrophils (%) (Auto) , Lymphocytes (%) ( Auto) , Monocytes (%) (Auto) , Eosinophils (%) (Auto) , Basophils (%) (Auto) , Differential Total Cells Counted 100, Neutrophils % (Manual) 60, Lymphocytes % ( Manual) 30, Monocytes % (Manual) 8, Eosinophils % (Manual) 2, Basophils % ( Manual) 0, Band Neutrophils 0, Platelet Estimate Adequate, Platelet Morphology Normal, Hypochromasia 3+, Anisocytosis 1+, Microcytosis 1+ Height (Feet): 5 Height (Inches): 5.00 Weight (Pounds): 112 Objective General: WDWN male in NAD, A&O x 2. Very anxious appearing. Poor hygeine HEENT: Normocephalic cephalic atraumatic, pupils equal round reactive to light and accommodation, nares patent and no symmetrical, no tonsillar exudates, mucous membranes moist CV: Regular rate regular rhythm, no murmurs, rubs, or gallops Pulm: Lungs clear to auscultation bilaterally. No wheezes, rhonchi, or rales GI: Soft, tenderness to deep palpation of left abdomen, nondistended, bowel sounds present Neuro: CN 2-12 intact bilaterally, no focal signs. Ext: No lower extremity edema bilaterally Skin: no rashes lesions or ulcers Msk: Joints symmetrical in upper extremity and lower extremity bilaterally, no joint swelling. Lymph: No lymphadenopathy in upper extremity and lower extremity Philippe Bourne D.O. Apr 10, 2019 22:31
[2019-04-11] VITALS (9 sets, daily range): BP systolic 80–112; BP diastolic 41–65
[2019-04-11 05:41] LABS: HEMATOCRIT 20.6 % (42.0-52.0); MEAN CORPUSCULAR VOLUME 88 FL (80-99); PLATELET COUNT 309 K/UL (150-450); RED BLOOD COUNT 2.35 M/UL (4.70-6.10); RED CELL DISTRIBUTION WIDTH 14.2 % (11.6-14.8); WHITE BLOOD COUNT 3.7 K/UL (4.8-10.8)
[2019-04-11 05:53] LABS: PHOSPHORUS 2.6 MG/DL (2.5-4.9)
[2019-04-11 06:09] LABS: ANION GAP 11 mmol/L (5-15); BLOOD UREA NITROGEN 13 mg/dL (7-18); CALCIUM 7.7 MG/DL (8.5-10.1); CARBON DIOXIDE 24 MMOL/L (21-32); CHLORIDE 101 MMOL/L (98-107); CREATININE 0.6 MG/DL (0.55-1.30); POTASSIUM 3.1 MMOL/L (3.5-5.1); SODIUM 136 MMOL/L (136-145)
[2019-04-11 06:11] LABS: HEMOGLOBIN 6.8 G/DL (14.2-18.0)
--- NOTE | 2019-04-11 07:16 | NUR ---
HAND-OFF: Report given to JOANN SOUSA RN. Pt remains stable.
--- NOTE | 2019-04-11 07:16 | NUR ---
NURSE NOTES: Received report SADE Patel,patient with sitter Dorothy KELLEY ,wanting to go home,pacing the room back and forth,waiting for psyche consult-Dr. argueta,is aware,wants to eat,served full liquid breakfast,patient does not fully understand whats happening to him,low H/H,will watch for bleeding,monitor,patient keep on asking to go home,had conversation with him yesterday and this morning,Dr. Argueta will see him ,Patient said " Doctor will see me OK" Addendum: 04/11/19 at 0803 by Saadia Dolan RN patient received no IV refused,wanting to go home
[2019-04-11] MEDS: Pantoprazole Inj IVP SCH ×2 (08:10→20:04)
[2019-04-11] MEDS: Piperacillin/Tazobactam 3.375 GM in NS 110 ML IVPB SCH ×3 (08:11→23:06)
--- NOTE | 2019-04-11 08:29 | NUR ---
NURSE NOTES: Patient refuse Zosyn,i was able to give protonix,BP low ,not dizzy per patient ,instructed not to flush toilet ,i need to see bowel movement
--- NOTE | 2019-04-11 10:45 | NUR ---
NURSE NOTES: Patient went to EGD per stretcher with RN Luroslyn and transport,stable,cooperative
--- NOTE | 2019-04-11 10:55 | Pre-Procedure Note/Attestation ---
Pre-Procedure Note/Attestation Complete Prior to Procedure Planned Procedure: not applicable Procedure Narrative: egd Indications for Procedure Pre-Operative Diagnosis: GIB Attestation I attest that I discussed the nature of the procedure; its benefits; risks and complications; and alternatives (and the risks and benefits of such alternatives ), prior to the procedure, with the patient (or the patient's legal chain sales representative). I attest that, if there was a reasonable possibility of needing a blood transfusion, the patient (or the patient's legal chain sales representative) was given the [facility] standardized written summary, pursuant to the Haim Tyler Blood Safety Act ([place] Health and Safety Code # 1645, as amended). I attest that I re-evaluated the patient just prior to the surgery and that there has been no change in the patient's H&P, except as documented below: Mike Ojeda MD Apr 11, 2019 10:55
[2019-04-11] MEDS ORDERED: Propofol 200mg/20ml IV ONE (11:30)
[2019-04-11] MEDS ORDERED: Lidocaine 1% MPF 10mg/ml 5ml ONE (11:30)
[2019-04-11] MEDS ORDERED: LR 1000ml ONE (11:30)
--- NOTE | 2019-04-11 11:44 | Endoscopy Procedure Note ---
Endoscopy Procedure Note General Indication for Procedure: gib Procedures Performed: EGD Operative Findings/Diagnosis: esophagitis Specimen: yes Pt Tolerated Procedure Well: Yes Estimated Blood Loss: none Anesthesia Anesthesiologist: claudia Anesthesia: MAC Inserted Devices Implant(s) used?: No GI Core Measures 50 yrs or older w/o bx or poly: Not Applicable 10yrs. F/U recommended: Not Applicable Mike Ojeda MD Apr 11, 2019 11:44
--- NOTE | 2019-04-11 12:05 | Anethesia Preoperative Eval ---
Anesthesia Pre-op PMH/ROS General Date of Evaluation: Apr 11, 2019 Time of Evaluation: 11:20 Anesthesiologist: Christa Rhoades ASA Score: ASA 3 Mallampati Score Class I : Soft palate, uvula, fauces, pillars visible Class II: Soft palate, uvula, fauces visible Class III: Soft palate, base of uvula visible Class IV: Only hard plate visible Mallampati Classification: Class II Surgeon: Rusty Diagnosis: Severe anemia, hematoemesis Surgical Procedure: EGD Social History: smoking Family History: no anesthesia problems Allergies: Coded Allergies: No Known Allergies (Unverified , 04/09/19) Medications: see eMAR Patient NPO?: Yes NPO Date: Apr 11, 2019 NPO Time: 00:00 Past Medical History Cardiovascular: Reports: other - Hypotensive; sepsis; Denies: HTN, CAD, TN, valve dz, arrhythmia Pulmonary: Denies: asthma, COPD, MACI, other Gastrointestinal/Genitourinary: Reports: other - r/o GI bleed; Denies: GERD, CRI, ESRD Neurologic/Psychiatric: Reports: dementia - schizophrenia; Denies: CVA, depression/anxiety, TIA, other Endocrine: Denies: DM, hypothyroidism, steroids, other HEENT: Denies: cataract (L), cataract (R), glaucoma, [place]ANDY (L), [place] (R), other Hematology/Immune: Reports: anemia; Denies: DVT, bleeding disorder, other Musculoskeletal/Integumentary: Denies: OA, RA, DJD, DDD, edema, other PMH Narrative: as noted above PSxH Narrative: see H & P Anesthesia Pre-op Phys. Exam Physician Exam Last Vital Signs Date Time Temp Pulse Resp B/P (MAP) Pulse Ox O2 Delivery O2 Flow Rate FiO2 04/11/19 11:54 65 15 93/59 100 Nasal Cannula 3 04/11/19 11:49 97.6 Constitutional: NAD Neurologic: other - alert & oriented Cardiovascular: RRR Respiratory: CTA Gastrointestinal: S/NT/ND Airway Exam Mallampati Score: Class II MO: full Neck: FROM TMD: > 3 FB ROM: full Teeth: missing, broken, loose Dentures: no upper, no lower Anesthesia Pre-op A/P Labs Hematology Test 04/10/19 20:15 04/11/19 04:10 White Blood Count 4.5 K/UL (4.8-10.8) L 3.7 K/UL (4.8-10.8) L Red Blood Count 2.27 M/UL (4.70-6.10) L 2.35 M/UL (4.70-6.10) L Hemoglobin 6.5 G/DL (14.2-18.0) *L 6.8 G/DL (14.2-18.0) *L Hematocrit 19.6 % (42.0-52.0) L 20.6 % (42.0-52.0) L Mean Corpuscular Volume 86 FL (80-99) 88 FL (80-99) Mean Corpuscular Hemoglobin 28.6 PG (27.0-31.0) 28.9 PG (27.0-31.0) Mean Corpuscular Hemoglobin Concent 33.2 G/DL (32.0-36.0) 33.0 G/DL (32.0-36.0) Red Cell Distribution Width 13.9 % (11.6-14.8) 14.2 % (11.6-14.8) Platelet Count 302 K/UL (150-450) 309 K/UL (150-450) Mean Platelet Volume 4.8 FL (6.5-10.1) L 4.7 FL (6.5-10.1) L Neutrophils (%) (Auto) % (45.0-75.0) % (45.0-75.0) Lymphocytes (%) (Auto) % (20.0-45.0) % (20.0-45.0) Monocytes (%) (Auto) % (1.0-10.0) % (1.0-10.0) Eosinophils (%) (Auto) % (0.0-3.0) % (0.0-3.0) Basophils (%) (Auto) % (0.0-2.0) % (0.0-2.0) Differential Total Cells Counted 100 100 Neutrophils % (Manual) 60 % (45-75) 45 % (45-75) Lymphocytes % (Manual) 30 % (20-45) 38 % (20-45) Monocytes % (Manual) 8 % (1-10) 16 % (1-10) H Eosinophils % (Manual) 2 % (0-3) 1 % (0-3) Basophils % (Manual) 0 % (0-2) 0 % (0-2) Band Neutrophils 0 % (0-8) 0 % (0-8) Platelet Estimate Adequate Adequate Platelet Morphology Normal Normal Hypochromasia 3+ 1+ Anisocytosis 1+ 1+ Microcytosis 1+ Chemistry Test 04/11/19 04:10 Sodium Level 136 MMOL/L (136-145) Potassium Level 3.1 MMOL/L (3.5-5.1) L Chloride Level 101 MMOL/L (98-107) Carbon Dioxide Level 24 MMOL/L (21-32) Anion Gap 11 mmol/L (5-15) Blood Urea Nitrogen 13 mg/dL (7-18) Creatinine 0.6 MG/DL (0.55-1.30) Estimat Glomerular Filtration Rate > 60 mL/min (>60) Glucose Level 81 MG/DL (74-106) Calcium Level 7.7 MG/DL (8.5-10.1) L Phosphorus Level 2.6 MG/DL (2.5-4.9) Magnesium Level 2.0 MG/DL (1.8-2.4) Risk Assessment & Plan Assessment: ASA 3 E; ok to proceed Plan: MAC Status Change Before Surgery: No Pre-Antibiotics Given Within 1 Hr of Incision: Christa Brunner CRNA Apr 11, 2019 12:05
--- NOTE | 2019-04-11 12:06 | Immediate Post-Op Evaluation ---
Immediate Post-Op Evalulation Immediate Post-Op Evalulation Procedure: EGD Date of Evaluation: Apr 11, 2019 Time of Evaluation: 11:55 IV Fluids: LR 200 ml Blood Pressure Systolic: 98 Blood Pressure Diastolic: 52 Pulse Rate: 66 Respiratory Rate: 24 O2 Sat by Pulse Oximetry: 97 Temperature (Fahrenheit): 97.6 Pain Score (1-10): 0 Nausea: No Vomiting: No Complications none Patient Status: awake, patent Hydration Status: adequate Given Within 1 Hr of Incision: Christa Brunner CRNA Apr 11, 2019 12:06
--- NOTE | 2019-04-11 12:07 | 48 Hour Post Anesthesia Eval ---
Post Anesthesia Evaluation Procedure: EGD Date of Evaluation: Apr 11, 2019 Time of Evaluation: 12:07 Blood Pressure Systolic: 96 0: 65 Pulse Rate: 66 Respiratory Rate: 16 Temperature (Fahrenheit): 97.6 O2 Sat by Pulse Oximetry: 98 Airway: patent Nausea: No Vomiting: No Pain Intensity: 0 Hydration Status: adequate Cardiopulmonary Status: stable Mental Status/LOC: patient returned to baseline Follow-up Care/Observations: per hospitalist Post-Anesthesia Complications: none Follow-up care needed: N/A Christa Rhoades CRNA Apr 11, 2019 12:07
--- NOTE | 2019-04-11 12:15 | NUR ---
NURSE NOTES: Patient back from EGD awake alert asking for food,with LR,changed to IV fluid ordered,followed up food,served lunch
[2019-04-11 12:30] LABS: HEMATOCRIT 22.5 % (42.0-52.0); HEMOGLOBIN 7.4 G/DL (14.2-18.0); MEAN CORPUSCULAR VOLUME 87 FL (80-99); PLATELET COUNT 316 K/UL (150-450); RED CELL DISTRIBUTION WIDTH 14.3 % (11.6-14.8); WHITE BLOOD COUNT 5.4 K/UL (4.8-10.8)
[2019-04-11] MEDS: D5NS 1,000 ML IV SCH ×2 (12:51→18:49)
[2019-04-11] MEDS: Sucralfate 1gm tab ORAL SCH ×3 (12:52→20:04)
--- NOTE | 2019-04-11 13:00 | NUR ---
NURSE NOTES: Patient for blood transfusion but not ready yet,Zosyn given,IV fluids infusing,patient cooperative at this time 1700 Zosyn infusing,called blood bank ,no answer,I called Lab,Blood ready but Zosyn almost infused 1914 endorsed to next shift
--- NOTE | 2019-04-11 14:15 | Surgery Progress Note ---
Surgery Progress Note Subjective Additional Comments Agreeable for scope, anemia, states he feels well and still wants to go home Objective Last 24 Hour Vital Signs Date Time Temp Pulse Resp B/P (MAP) Pulse Ox O2 Delivery O2 Flow Rate FiO2 04/11/19 12:20 96.6 55 20 91/57 (68) 98 04/11/19 12:07 66 16 98 04/11/19 12:06 66 24 97 04/11/19 12:05 97.9 62 18 93/62 98 Nasal Cannula 3 04/11/19 11:59 59 15 96/65 98 Nasal Cannula 3 04/11/19 11:54 65 15 93/59 100 Nasal Cannula 3 04/11/19 11:49 97.6 61 12 98/52 100 Nasal Cannula 3 04/11/19 10:43 98.1 68 19 80/41 (54) 100 04/11/19 08:00 98.1 68 19 80/41 (54) 100 04/11/19 04:00 Room Air 04/11/19 00:00 Room Air 04/10/19 20:00 Room Air 04/10/19 16:00 Room Air I&O Intake and Output 04/10/19 04/11/19 19:00 07:00 Intake Total 500 ml Balance 500 ml Intake Oral 500 ml # Voids 2 Cardiovascular: RSR Respiratory: clear Abdomen: soft, non-tender, present bowel sounds, non-distended Extremities: no edema, no tenderness, no cyanosis Laboratory Tests Test 04/10/19 20:15 04/11/19 04:10 04/11/19 12:15 White Blood Count 4.5 K/UL (4.8-10.8) L 3.7 K/UL (4.8-10.8) L 5.4 K/UL (4.8-10.8) Red Blood Count 2.27 M/UL (4.70-6.10) L 2.35 M/UL (4.70-6.10) L 2.60 M/UL (4.70-6.10) L Hemoglobin 6.5 G/DL (14.2-18.0) *L 6.8 G/DL (14.2-18.0) *L 7.4 G/DL (14.2-18.0) L Hematocrit 19.6 % (42.0-52.0) L 20.6 % (42.0-52.0) L 22.5 % (42.0-52.0) L Mean Corpuscular Volume 86 FL (80-99) 88 FL (80-99) 87 FL (80-99) Mean Corpuscular Hemoglobin 28.6 PG (27.0-31.0) 28.9 PG (27.0-31.0) 28.5 PG (27.0-31.0) Mean Corpuscular Hemoglobin Concent 33.2 G/DL (32.0-36.0) 33.0 G/DL (32.0-36.0) 32.8 G/DL (32.0-36.0) Red Cell Distribution Width 13.9 % (11.6-14.8) 14.2 % (11.6-14.8) 14.3 % (11.6-14.8) Platelet Count 302 K/UL (150-450) 309 K/UL (150-450) 316 K/UL (150-450) Mean Platelet Volume 4.8 FL (6.5-10.1) L 4.7 FL (6.5-10.1) L 4.7 FL (6.5-10.1) L Neutrophils (%) (Auto) % (45.0-75.0) % (45.0-75.0) % (45.0-75.0) Lymphocytes (%) (Auto) % (20.0-45.0) % (20.0-45.0) % (20.0-45.0) Monocytes (%) (Auto) % (1.0-10.0) % (1.0-10.0) % (1.0-10.0) Eosinophils (%) (Auto) % (0.0-3.0) % (0.0-3.0) % (0.0-3.0) Basophils (%) (Auto) % (0.0-2.0) % (0.0-2.0) % (0.0-2.0) Differential Total Cells Counted 100 100 100 Neutrophils % (Manual) 60 % (45-75) 45 % (45-75) 61 % (45-75) Lymphocytes % (Manual) 30 % (20-45) 38 % (20-45) 25 % (20-45) Monocytes % (Manual) 8 % (1-10) 16 % (1-10) H 13 % (1-10) H Eosinophils % (Manual) 2 % (0-3) 1 % (0-3) 1 % (0-3) Basophils % (Manual) 0 % (0-2) 0 % (0-2) 0 % (0-2) Band Neutrophils 0 % (0-8) 0 % (0-8) 0 % (0-8) Platelet Estimate Adequate Adequate Adequate Platelet Morphology Normal Normal Normal Hypochromasia 3+ 1+ 1+ Anisocytosis 1+ 1+ 1+ Microcytosis 1+ Sodium Level 136 MMOL/L (136-145) Potassium Level 3.1 MMOL/L (3.5-5.1) L Chloride Level 101 MMOL/L (98-107) Carbon Dioxide Level 24 MMOL/L (21-32) Anion Gap 11 mmol/L (5-15) Blood Urea Nitrogen 13 mg/dL (7-18) Creatinine 0.6 MG/DL (0.55-1.30) Estimat Glomerular Filtration Rate > 60 mL/min (>60) Glucose Level 81 MG/DL (74-106) Calcium Level 7.7 MG/DL (8.5-10.1) L Phosphorus Level 2.6 MG/DL (2.5-4.9) Magnesium Level 2.0 MG/DL (1.8-2.4) Plan Problems: (1) Upper GI bleed Assessment & Plan: GI Bleed states blood noted in BM does not want colonoscopy recommend colonoscopy completed defer to GI psych eval thank you (2) Bowel obstruction Assessment & Plan: CT reviewed. patient with BM and flatus. no abd tenderness and no c/o pain now likely compression of bowel no n/v/f/c stable no acute surgical intervention planned okay for diet will follow with exams d/cp marion thank you Findings: Lack of enteric contrast administration limits assessment of the GI tract. There is a small to moderate-sized sliding-type hiatal hernia. The stomach is markedly distended with food and gas. The anatomy of the gastric outlet is not well visualized, but the duodenum is nondilated. No definite obstructive lesion is evident. There are mildly dilated gas-filled jejunal loops in the left upper quadrant. No definite transition point is evident, although the distal ileum appears to be nondilated.. There is mild rectal distention by feces, rectal diameter 6 cm. There is considerable retained stool throughout the colon. No definite evidence of colonic diverticulosis or diverticulitis. The appendix is not definitely visualized, but there are no definite findings to suggest acute appendicitis. There is a small fat-containing right inguinal hernia. There is slight skin thickening and infiltration of the subcutaneous fat in the retrococcygeal region and at the inferior aspect of the inner gluteal fold right of midline. There may be slight soft tissue irregularity as well. The liver demonstrates multiple cysts, as well as a few subcentimeter low- attenuation lesions which are too small to characterize. The gallbladder, bile ducts, pancreas, spleen, adrenals are unremarkable. The kidneys demonstrate a cyst on the left and bilateral subcentimeter low-attenuation lesions which are too small to characterize. No renal or ureteral calculi, hydronephrosis, or hydroureter. No retroperitoneal or mesenteric mass or adenopathy. No pelvic mass or adenopathy. There is mild bladder wall thickening. The included lung bases demonstrate some vague groundglass opacity bilaterally, as well as some scarring at the left lung base. The bones demonstrate mild degenerative changes of the lumbosacral junction. Impression: Limited assessment of the GI tract, due to lack of enteric contrast demonstration Markedly distended stomach. Suspect functional in nature given absence of obvious obstructing lesion, although occult obstructive lesion at the level of pylorus cannot be ruled out Mildly distended proximal small bowel loops. There is no definite transition point, but distal small bowel loops are nondistended. Likewise suspect functional in nature or on the basis of enteritis changes, but the possibility of partial obstruction at the level of the mid small bowel should be considered. Considerable colonic stool retention, possible mild rectal fecal impaction Slight soft tissue thickening in the retrococcygeal buttock region, could indicate early decubitus changes. Correlate with clinical findings Hepatic and left renal cysts. Subcentimeter low-attenuation renal and liver lesions, too small to characterize, most likely benign simple cysts. No further follow-up necessary Vague basilar pulmonary parenchymal groundglass opacity, nonspecific, could represent mild edema, COPD changes, inflammatory or postinflammatory changes, among other possibilities Evidence of chronic scarring at the left lung base Other findings as noted, including small fat-containing right inguinal hernia, small to moderate hiatal hernia, degenerative spondylosis Arron Barker Apr 11, 2019 14:14
--- NOTE | 2019-04-11 16:30 | Procedure Note ---
DATE OF PROCEDURE: 04/11/2019 SURGEON: Mike Ojeda MD PROCEDURE: Upper endoscopy with biopsy. ANESTHESIA: Per SHAMEKA Goodwin. INSTRUMENT: Olympus adult flexible upper endoscope. INDICATION: Upper GI bleeding. REASON FOR PROCEDURE: The procedure, risks, benefits, and possible consequences, including hemorrhage, aspiration, perforation and infection, and alternative treatments, were explained to the patient/legal guardian by Dr. Mike Ojeda and the patient/legal guardian understood and accepted these risks. DESCRIPTION OF PROCEDURE: After informed consent was obtained and the patient was adequately sedated, Olympus upper endoscope was advanced from mouth into the second portion of the duodenum and retroflexion was performed in the stomach. The patient has evidence of distal esophagitis without any obvious active stigmata at this time. No esophageal varices. This is most probably the source of bleeding. There might be little bit of tear at the GE junction for Mary-Person tear. In the stomach, there was diffuse gastritis. Random biopsy from antrum was obtained to rule out H. pylori infection. As we approached the pylorus, there was narrowing in the pylorus. We are able to pass the scope into the duodenum but there was definitely narrowing there, but no obvious ulceration. The patient tolerated procedure very well without any complications. SUMMARY OF FINDINGS: 1. Esophagitis most probably the source of bleeding. 2. Questionable Mary-Person tear. 3. Gastritis, status post biopsy. 4. Pylorus stenosis. RECOMMENDATIONS: 1. Follow up biopsy results and treat accordingly. 2. Reflux measures, PPI plus Carafate. 3. Blood transfusion for today. 4. Resume diet. 5. Repeat labs for tomorrow. I want to thank Dr. Hahn, for this kind referral. Mike Ojeda M.D. DR: Daniel JOB#: [id number] CC: Fredi Hahn M.D.; Fax#: [phone]
--- NOTE | 2019-04-11 17:20 | NUR ---
NURSE NOTES: 1045 Dr. Reed came to visit-talked to patient,agree to go for EGD ,Dr. Ojeda also here,they talked with Dr. Reed,consent signed by patient and Dr. Reed,need blood transfusion,he signed consent with Dr. Ojeda both doctors notified low BP ,low H/H,IV fluids increased 150 ml/hr,need 2 units blood 1215 patient back in room,awake asking for food 1230 served lunch ,ate good,hungry,sitter remain at bedside,patient gets out bed,fall risk,now with IV fluids
--- NOTE | 2019-04-11 17:26 | NUR ---
NURSE NOTES: Able to give his Zosyn,still infusing,followed up blood,ready
--- NOTE | 2019-04-11 18:40 | General Progress Note ---
Assessment/Plan Assessment/Plan: Is a 59-year-old male with a past medical history of schizophrenia and hypothyroidism presenting with acute on chronic abdominal pain and hematemesis. CT abdomen also shows possible small bowel obstruction and constipation. #Acute on chronic abdominal pain #Hematemesis #Suspect acute blood loss anemia 2/2 hematemesis #Sepsis (tachycardia and WBC) suspected 2/2 GI etiology #Possible small bowel obstruction. No obstruction per Surgery -Telemetry -Stepdown unit -GI consult: Dr. Ojeda -General surgery consult: Dr. Barker -N.p.o. -Trend CBC every 8 hours -Transfuse for hemoglobin less than 7 -IV fluids -Protonix 40 mg IV twice daily -Iron studies and ferritin -Zosyn (04/09 - ) -EGD today: Esophagitis. F/u bx results #Hypokalemia -Replete PRN #hyponatremia, suspect hypovolemic -IV fluids #Schizophrenia -Psych consult -Patient denying alcohol use but patient is a poor historian will initiate CIWAA protocol -Started on risperidone #Homelessness -Social work consult #Constipation -Bowel regimen #Suspect protein calorie malnutrition -Nutrition consult FENPPX DVTPPX: SCDs, no chemoppx due to bleed GI PPX: Protonix Fluids: IV fluids Diet: N.p.o. Lines: None PT/OT: Pending Code status: Full code Dispo: Pending Reason for Continued Hospitalization: GI bleed 40 minutes spent on this encounter. Discussed with RN, GI, general surgery, psychiatry. > 50% spent on counseling and care coordination. Time of note may not reflect time patient was seen. Subjective Date patient seen: Apr 11, 2019 Allergies: Coded Allergies: No Known Allergies (Unverified , 04/09/19) Subjective No acute events overnight per nursing. Patient agreed to EGD today. severe esophatitis. Hgb down to 6.8. Agreed to transfusion. Feels better. Vitals stable. No further episodes of chest pain or SOB. No abdominal pain. Melena or hematochezia or hematemesis Objective Last 24 Hour Vital Signs Date Time Temp Pulse Resp B/P (MAP) Pulse Ox O2 Delivery O2 Flow Rate FiO2 04/11/19 16:39 98.9 70 18 103/55 (71) 100 04/11/19 16:00 Room Air 04/11/19 16:00 62 2/21/20 12:30 Room Air 04/11/19 12:20 96.6 55 20 91/57 (68) 98 04/11/19 12:07 66 16 98 04/11/19 12:06 66 24 97 04/11/19 12:05 97.9 62 18 93/62 98 Nasal Cannula 3 04/11/19 12:00 58 04/11/19 11:59 59 15 96/65 98 Nasal Cannula 3 04/11/19 11:54 65 15 93/59 100 Nasal Cannula 3 04/11/19 11:49 97.6 61 12 98/52 100 Nasal Cannula 3 04/11/19 10:43 98.1 68 19 80/41 (54) 100 04/11/19 08:00 Room Air 04/11/19 08:00 98.1 68 19 80/41 (54) 100 04/11/19 04:00 Room Air 04/11/19 00:00 Room Air 04/10/19 20:00 Room Air Intake and Output 04/10/19 04/11/19 19:00 07:00 Intake Total 500 ml Balance 500 ml Intake Oral 500 ml # Voids 2 Laboratory Tests 04/10/19 20:15: White Blood Count 4.5L, Red Blood Count 2.27L, Hemoglobin 6.5*L, Hematocrit 19.6L, Mean Corpuscular Volume 86, Mean Corpuscular Hemoglobin 28.6, Mean Corpuscular Hemoglobin Concent 33.2, Red Cell Distribution Width 13.9, Platelet Count 302, Mean Platelet Volume 4.8L, Neutrophils (%) (Auto) , Lymphocytes (%) ( Auto) , Monocytes (%) (Auto) , Eosinophils (%) (Auto) , Basophils (%) (Auto) , Differential Total Cells Counted 100, Neutrophils % (Manual) 60, Lymphocytes % ( Manual) 30, Monocytes % (Manual) 8, Eosinophils % (Manual) 2, Basophils % ( Manual) 0, Band Neutrophils 0, Platelet Estimate Adequate, Platelet Morphology Normal, Hypochromasia 3+, Anisocytosis 1+, Microcytosis 1+ 04/11/19 04:10: White Blood Count 3.7L, Red Blood Count 2.35L, Hemoglobin 6.8*L, Hematocrit 20.6L, Mean Corpuscular Volume 88, Mean Corpuscular Hemoglobin 28.9, Mean Corpuscular Hemoglobin Concent 33.0, Red Cell Distribution Width 14.2, Platelet Count 309, Mean Platelet Volume 4.7L, Neutrophils (%) (Auto) , Lymphocytes (%) ( Auto) , Monocytes (%) (Auto) , Eosinophils (%) (Auto) , Basophils (%) (Auto) , Differential Total Cells Counted 100, Neutrophils % (Manual) 45, Lymphocytes % ( Manual) 38, Monocytes % (Manual) 16H, Eosinophils % (Manual) 1, Basophils % ( Manual) 0, Band Neutrophils 0, Platelet Estimate Adequate, Platelet Morphology Normal, Hypochromasia 1+, Anisocytosis 1+, Sodium Level 136, Potassium Level 3.1L, Chloride Level 101, Carbon Dioxide Level 24, Anion Gap 11, Blood Urea Nitrogen 13, Creatinine 0.6, Estimat Glomerular Filtration Rate > 60, Glucose Level 81, Calcium Level 7.7L, Phosphorus Level 2.6, Magnesium Level 2.0 04/11/19 12:15: White Blood Count 5.4, Red Blood Count 2.60L, Hemoglobin 7.4L, Hematocrit 22.5L , Mean Corpuscular Volume 87, Mean Corpuscular Hemoglobin 28.5, Mean Corpuscular Hemoglobin Concent 32.8, Red Cell Distribution Width 14.3, Platelet Count 316, Mean Platelet Volume 4.7L, Neutrophils (%) (Auto) , Lymphocytes (%) ( Auto) , Monocytes (%) (Auto) , Eosinophils (%) (Auto) , Basophils (%) (Auto) , Differential Total Cells Counted 100, Neutrophils % (Manual) 61, Lymphocytes % ( Manual) 25, Monocytes % (Manual) 13H, Eosinophils % (Manual) 1, Basophils % ( Manual) 0, Band Neutrophils 0, Platelet Estimate Adequate, Platelet Morphology Normal, Hypochromasia 1+, Anisocytosis 1+ Height (Feet): 5 Height (Inches): 5.00 Weight (Pounds): 112 Objective General: WDWN male in NAD, A&O x 3. Very anxious appearing. Poor hygeine HEENT: Normocephalic cephalic atraumatic, pupils equal round reactive to light and accommodation, nares patent and no symmetrical, no tonsillar exudates, mucous membranes moist CV: Regular rate regular rhythm, no murmurs, rubs, or gallops Pulm: Lungs clear to auscultation bilaterally. No wheezes, rhonchi, or rales GI: Soft, non tender to palpation, nondistended, bowel sounds present Neuro: CN 2-12 intact bilaterally, no focal signs. Ext: No lower extremity edema bilaterally Skin: no rashes lesions or ulcers Msk: Joints symmetrical in upper extremity and lower extremity bilaterally, no joint swelling. Lymph: No lymphadenopathy in upper extremity and lower extremity Philippe Bourne D.O. Apr 11, 2019 18:40
--- NOTE | 2019-04-11 19:03 | NUR ---
HAND-OFF: Report given to RN Thereasa patient awake going to restroom,stable
--- NOTE | 2019-04-11 19:15 | NUR ---
NURSE NOTES: Received pt from SADE Zee. Pt is observed resting in bed, alert and oriented x 3-4. Pt noted to have moments of confusion but able to make needs known, no signs or symptoms of pain noted upon physical assessment. Pt currently denies pain. Pt is on RA with no s/sx of respiratory distress noted and continues to deny SOB. Pt remains SR with a HR of 69 noted and no s/sx of cardiac distress noted. R FA 20G IV catheter noted which remains asymptomatic, intact and patent. Will carry out orders for blood transfusion after administration of scheduled antibiotics. Diagnostics and plan of care reviewed. Fall precautions maintained. Pt remains resting in bed; bed remains in lowest position with safety wheels engaged, call light within reach, side rails up x3 and bed alarm activated. Sitter remains present at bedside. Will continue plan of care. Will continue to monitor.
--- NOTE | 2019-04-11 19:17 | NUR ---
HAND-OFF: Report given to SADE Collins with sitter,patient going to restroom,with IV fluids.
[2019-04-11 20:00] LABS: HEMATOCRIT 21.6 % (42.0-52.0); MEAN CORPUSCULAR VOLUME 88 FL (80-99); PLATELET COUNT 303 K/UL (150-450); RED BLOOD COUNT 2.46 M/UL (4.70-6.10); RED CELL DISTRIBUTION WIDTH 16.2 % (11.6-14.8)
[2019-04-11] MEDS ORDERED: Piperacillin/Tazobactam 3.375 GM in NS 110 ML IVPB SCH (20:00)
[2019-04-11] MEDS: Iron Sucrose 100 MG in NS 55 ML IV SCH (20:04)
[2019-04-11 20:15] LABS: HEMOGLOBIN 6.9 G/DL (14.2-18.0)
--- NOTE | 2019-04-11 20:55 | NUR ---
NURSE NOTES: Blood transfusion stated as ordered. VS remain stable at this time. Pt agrees to be compliant and remain in bed for duration of transfusion. Pt provided with bedside education including s/sx to report. Will continue to monitor.
--- NOTE | 2019-04-11 21:00 | Consultation ---
DATE OF CONSULTATION: 04/11/2019 HISTORY OF PRESENT ILLNESS: This is a 59-year-old male with a history of schizophrenia and homeless, who has been admitted to the hospital due to abdominal pain. Apparently the patient is having internal bleeding. He is stabilizing. The patient has been here since yesterday. He has been refusing the procedures and would like to leave against medical advice. Upon evaluation, I had a discussion with him. I told him that he had coffee-ground emesis and severe insomnia. The patient has been refusing endoscopy too. However, during my evaluation, when I explained to him the severity of his condition, he agreed to blood transfusion as well as to the EGD, endoscopy. The patient is calm and cooperative. He is hypotensive. He has severe anemia. PAST PSYCHIATRIC HISTORY: Schizophrenia and several psychiatric hospitalizations. PAST MEDICAL HISTORY: Sepsis, bowel obstruction. ALLERGIES: No known drug allergies. SUBSTANCE ABUSE HISTORY: No known history of illicit drug use or alcohol. MENTAL STATUS EXAMINATION: The patient is alert, oriented times self, place, and situation. Mood is neutral. Affect is constricted, congruent with mood. Thought process is concrete. Thought content, no suicidal or homicidal ideation. Cognition is impaired. Insight and judgment is impaired. ASSESSMENT: [place] I Schizophrenia. [place] II Deferred. [place] III As above. [place] IV Low [place] V 20 PLAN: 1. The patient has capacity to sign the consent form and he agreed to sign the consent. 2. He is also giving consent to blood transfusion. 3. We discussed with the ER physician as well as the nurse. Tamara Reed M.D. DR: Heaven JOB#: [id number] CC:
--- NOTE | 2019-04-11 21:12 | NUR ---
NURSE NOTES: VS remain stable during transfusion. Pt reports no adverse s/sx. Sitter remains bedside. Will continue to monitor.
--- NOTE | 2019-04-11 23:00 | NUR ---
NURSE NOTES: Blood transfusion finished. VS remain stable. IV catheter remains asymptomatic, patent and intact. IV catheter flushed well with NS post transfusion. Was unable to administer Zosyn at 22:00 due to transfusion. Will administer Zosyn as prescribed now.
--- NOTE | 2019-04-11 23:39 | NUR ---
NURSE NOTES: Pt denies bed bath, linen change and oral care at this time. Pt educated on personal hygiene. Pt allowed for a partial bed bath. Will reattempt later. Will continue to monitor.
[2019-04-12] VITALS: BP 110/62
[2019-04-12] MEDS: D5NS 1,000 ML IV SCH ×2 (00:20→05:30)
--- NOTE | 2019-04-12 03:53 | NUR ---
NURSE NOTES: Initiated administration second unit of blood as prescribed. VS remain stable and pt continues resting in bed. Will continue to monitor.
[2019-04-12 03:56] LABS: HEMATOCRIT 23.6 % (42.0-52.0); HEMOGLOBIN 7.8 G/DL (14.2-18.0); MEAN CORPUSCULAR VOLUME 87 FL (80-99); PLATELET COUNT 265 K/UL (150-450); RED CELL DISTRIBUTION WIDTH 14.1 % (11.6-14.8); WHITE BLOOD COUNT 8.8 K/UL (4.8-10.8)
[2019-04-12 04:00] VITALS: BP 102/62
[2019-04-12 04:34] LABS: PHOSPHORUS 2.1 MG/DL (2.5-4.9)
[2019-04-12 04:39] LABS: ALANINE AMINOTRANSFERASE 17 U/L (12-78); ALBUMIN 2.2 G/DL (3.4-5.0); ALBUMIN/GLOBULIN RATIO 0.6 (1.0-2.7); ALKALINE PHOSPHATASE 57 U/L (46-116); ANION GAP 9 mmol/L (5-15); ASPARTATE AMINO TRANSFERASE 16 U/L (15-37); BILIRUBIN,TOTAL 0.3 MG/DL (0.2-1.0); BLOOD UREA NITROGEN 7 mg/dL (7-18); CALCIUM 7.9 MG/DL (8.5-10.1); CARBON DIOXIDE 22 MMOL/L (21-32); CHLORIDE 105 MMOL/L (98-107); CREATININE 0.7 MG/DL (0.55-1.30); POTASSIUM 4.3 MMOL/L (3.5-5.1); SODIUM 136 MMOL/L (136-145)
[2019-04-12] MEDS: Piperacillin/Tazobactam 3.375 GM in NS 110 ML IVPB SCH ×2 (05:30→14:00)
--- NOTE | 2019-04-12 06:00 | NUR ---
NURSE NOTES: Pt awoke and became incredibly agitated and unwilling to comply with medical care. Pt started getting dressed, refused to return to bed, ripped out IV antibiotic and took off tele monitor. Pt educated but continues to refuse care. Will continue to monitor.
--- NOTE | 2019-04-12 06:00 | NUR ---
NURSE NOTES: No adverse effects noted from blood transfusion. VS remain stable and pt continues resting in bed.
--- NOTE | 2019-04-12 07:29 | NUR ---
HAND-OFF: Report given to SADE Cast. Pt continues to refuse cardiac monitoring, IV fluids and antibiotics and is asking to be released from care. Endorsed plan of care to oncoming shift.
--- NOTE | 2019-04-12 07:30 | General Progress Note ---
Assessment/Plan Problem List: (1) Homelessness ICD Codes: Z59.0 - Homelessness SNOMED: 29182641 (2) Schizophrenia ICD Codes: F20.9 - Schizophrenia, unspecified SNOMED: 23107096 (3) Acute blood loss anemia ICD Codes: D62 - Acute posthemorrhagic anemia SNOMED: 432097237 (4) Upper GI bleed ICD Codes: K92.2 - Gastrointestinal hemorrhage, unspecified SNOMED: 28669150 Assessment/Plan: s/p EGD: tSUMMARY OF FINDINGS: 1. Esophagitis most probably the source of bleeding. 2. Questionable Mary-Person tear. 3. Gastritis, status post biopsy. 4. Pylorus stenosis. RECOMMENDATIONS: 1. Follow up biopsy results and treat accordingly. 2. Reflux measures, PPI plus Carafate. 3. s/p blood transfusion yesterday. 4. on diet. 5. Repeat labs for tomorrow Subjective ROS Limited/Unobtainable: Yes Allergies: Coded Allergies: No Known Allergies (Unverified , 04/09/19) Subjective wants to go home Objective Last 24 Hour Vital Signs Date Time Temp Pulse Resp B/P (MAP) Pulse Ox O2 Delivery O2 Flow Rate FiO2 04/12/19 04:00 Room Air 04/12/19 04:00 98.0 73 18 102/62 (75) 100 04/12/19 03:38 71 04/12/19 00:00 Room Air 04/12/19 00:00 98.4 69 20 110/62 (78) 100 04/12/19 00:00 75 04/11/19 20:07 77 04/11/19 20:00 98.7 72 18 112/64 (80) 100 04/11/19 20:00 Room Air 04/11/19 16:39 98.9 70 18 103/55 (71) 100 04/11/19 16:00 Room Air 04/11/19 16:00 62 04/11/19 12:30 Room Air 04/11/19 12:20 96.6 55 20 91/57 (68) 98 04/11/19 12:07 66 16 98 04/11/19 12:06 66 24 97 04/11/19 12:05 97.9 62 18 93/62 98 Nasal Cannula 3 04/11/19 12:00 58 04/11/19 11:59 59 15 96/65 98 Nasal Cannula 3 04/11/19 11:54 65 15 93/59 100 Nasal Cannula 3 04/11/19 11:49 97.6 61 12 98/52 100 Nasal Cannula 3 04/11/19 10:43 98.1 68 19 80/41 (54) 100 04/11/19 08:00 Room Air 04/11/19 08:00 98.1 68 19 80/41 (54) 100 Intake and Output 04/11/19 04/12/19 19:00 07:00 Intake Total 2310.0 ml 1155.0 ml Output Total 1400 ml Balance 2310.0 ml -245.0 ml Intake Oral 360 ml 200 ml IV Total 1350.0 ml 355.0 ml Blood Product 600 ml Other 600 ml Output Urine Total 1400 ml # Voids 3 3 # Bowel Movements 2 Laboratory Tests 04/11/19 12:15: White Blood Count 5.4, Red Blood Count 2.60L, Hemoglobin 7.4L, Hematocrit 22.5L , Mean Corpuscular Volume 87, Mean Corpuscular Hemoglobin 28.5, Mean Corpuscular Hemoglobin Concent 32.8, Red Cell Distribution Width 14.3, Platelet Count 316, Mean Platelet Volume 4.7L, Neutrophils (%) (Auto) , Lymphocytes (%) ( Auto) , Monocytes (%) (Auto) , Eosinophils (%) (Auto) , Basophils (%) (Auto) , Differential Total Cells Counted 100, Neutrophils % (Manual) 61, Lymphocytes % ( Manual) 25, Monocytes % (Manual) 13H, Eosinophils % (Manual) 1, Basophils % ( Manual) 0, Band Neutrophils 0, Platelet Estimate Adequate, Platelet Morphology Normal, Hypochromasia 1+, Anisocytosis 1+ 04/11/19 19:50: White Blood Count 8.0, Red Blood Count 2.46L, Hemoglobin 6.9*L, Hematocrit 21.6L , Mean Corpuscular Volume 88, Mean Corpuscular Hemoglobin 28.1, Mean Corpuscular Hemoglobin Concent 32.0, Red Cell Distribution Width 16.2H, Platelet Count 303, Mean Platelet Volume 5.0L, Neutrophils (%) (Auto) , Lymphocytes (%) (Auto) , Monocytes (%) (Auto) , Eosinophils (%) (Auto) , Basophils (%) (Auto) , Differential Total Cells Counted 100, Neutrophils % ( Manual) 84H, Lymphocytes % (Manual) 15L, Monocytes % (Manual) 0L, Eosinophils % (Manual) 1, Basophils % (Manual) 0, Band Neutrophils 0, Platelet Estimate Adequate, Platelet Morphology Normal, Hypochromasia 2+, Anisocytosis 1+ 04/12/19 03:21: White Blood Count 8.8, Red Blood Count 2.70L, Hemoglobin 7.8L, Hematocrit 23.6L , Mean Corpuscular Volume 87, Mean Corpuscular Hemoglobin 28.9, Mean Corpuscular Hemoglobin Concent 33.1, Red Cell Distribution Width 14.1, Platelet Count 265, Mean Platelet Volume 4.6L, Neutrophils (%) (Auto) , Lymphocytes (%) ( Auto) , Monocytes (%) (Auto) , Eosinophils (%) (Auto) , Basophils (%) (Auto) , Differential Total Cells Counted 100, Neutrophils % (Manual) 85H, Lymphocytes % (Manual) 10L, Monocytes % (Manual) 4, Eosinophils % (Manual) 1, Basophils % ( Manual) 0, Band Neutrophils 0, Platelet Estimate Adequate, Platelet Morphology Normal, Hypochromasia 3+, Anisocytosis 1+, Sodium Level [Pending], Potassium Level [Pending], Chloride Level [Pending], Carbon Dioxide Level [Pending], Anion Gap 9, Blood Urea Nitrogen [Pending], Creatinine [Pending], Estimat Glomerular Filtration Rate [Pending], Glucose Level [Pending], Calcium Level [ Pending], Phosphorus Level 2.1L, Magnesium Level 1.7L, Total Bilirubin 0.3, Aspartate Amino Transf (AST/SGOT) 16, Alanine Aminotransferase (ALT/SGPT) 17, Alkaline Phosphatase 57, Total Protein 5.7L, Albumin 2.2L, Globulin 3.5, Albumin /Globulin Ratio 0.6L Height (Feet): 5 Height (Inches): 5.00 Weight (Pounds): 112 General Appearance: alert EENT: normal ENT inspection, pale conjunctivae Neck: supple Cardiovascular: normal rate Respiratory/Chest: decreased breath sounds Abdomen: normal bowel sounds, non tender, soft Extremities: non-tender Mike Ojeda MD Apr 12, 2019 07:30
--- NOTE | 2019-04-12 07:32 | NUR ---
NURSE NOTES: Received bedside report from Carolina STUART. Pt. up sitting at the edge of his bed having breakfast. No sign of distress. Denies pain at present. Pt. refused outgoing shift nurse to be connected back to his IV atb and IVF. 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 Explained risk and benefits from IV atb/IVF, motion picture actor but still refused everything. Will notify his MD. Will cont. to monitor.
[2019-04-12 08:00] VITALS: BP 110/78
[2019-04-12] MEDS: Pantoprazole Inj IVP SCH (09:00)
[2019-04-12] MEDS: Sucralfate 1gm tab ORAL SCH ×2 (09:00→13:00)
--- NOTE | 2019-04-12 09:15 | NUR ---
NURSE NOTES: Pt. refused morning medication.
[2019-04-12 12:00] VITALS: BP 103/68
--- NOTE | 2019-04-12 12:20 | NUR ---
NURSE NOTES: Seen by Dr. Deal and notified her regarding pt. continue refusal to wear manager cardiac, IVF, and IV atb since this morning. Dr. Deal talked to pt. and told her that he doesn't want any IV's and he is leaving today. Dr. Deal informed me that she will talk to Dr. Ojeda for possible clearance to be discharge. Will cont. to monitor.
[2019-04-12 12:26] LABS: HEMATOCRIT 27.8 % (42.0-52.0); HEMOGLOBIN 9.2 G/DL (14.2-18.0); MEAN CORPUSCULAR VOLUME 88 FL (80-99); PLATELET COUNT 288 K/UL (150-450); RED BLOOD COUNT 3.17 M/UL (4.70-6.10); RED CELL DISTRIBUTION WIDTH 14.1 % (11.6-14.8); WHITE BLOOD COUNT 7.6 K/UL (4.8-10.8)
--- NOTE | 2019-04-12 12:54 | Surgery Progress Note ---
Surgery Progress Note Subjective Symptoms: improved, pain absent, tolerating diet, voiding well Objective Last 24 Hour Vital Signs Date Time Temp Pulse Resp B/P (MAP) Pulse Ox O2 Delivery O2 Flow Rate FiO2 04/12/19 12:00 Room Air 04/12/19 08:00 98.8 87 19 110/78 (89) 100 04/12/19 08:00 Room Air 04/12/19 04:00 Room Air 04/12/19 04:00 98.0 73 18 102/62 (75) 100 04/12/19 03:38 71 04/12/19 00:00 Room Air 04/12/19 00:00 98.4 69 20 110/62 (78) 100 04/12/19 00:00 75 04/11/19 20:07 77 04/11/19 20:00 98.7 72 18 112/64 (80) 100 04/11/19 20:00 Room Air 04/11/19 16:39 98.9 70 18 103/55 (71) 100 04/11/19 16:00 Room Air 04/11/19 16:00 62 I&O Intake and Output 04/11/19 04/12/19 19:00 07:00 Intake Total 2310.0 ml 1155.0 ml Output Total 1400 ml Balance 2310.0 ml -245.0 ml Intake Oral 360 ml 200 ml IV Total 1350.0 ml 355.0 ml Blood Product 600 ml Other 600 ml Output Urine Total 1400 ml # Voids 3 3 # Bowel Movements 2 Cardiovascular: RSR Respiratory: clear Abdomen: soft, flat, non-tender, present bowel sounds Extremities: no edema, no cyanosis Laboratory Tests Test 04/11/19 19:50 04/12/19 03:21 04/12/19 12:10 White Blood Count 8.0 K/UL (4.8-10.8) 8.8 K/UL (4.8-10.8) 7.6 K/UL (4.8-10.8) Red Blood Count 2.46 M/UL (4.70-6.10) L 2.70 M/UL (4.70-6.10) L 3.17 M/UL (4.70-6.10) L Hemoglobin 6.9 G/DL (14.2-18.0) *L 7.8 G/DL (14.2-18.0) L 9.2 G/DL (14.2-18.0) L Hematocrit 21.6 % (42.0-52.0) L 23.6 % (42.0-52.0) L 27.8 % (42.0-52.0) L Mean Corpuscular Volume 88 FL (80-99) 87 FL (80-99) 88 FL (80-99) Mean Corpuscular Hemoglobin 28.1 PG (27.0-31.0) 28.9 PG (27.0-31.0) 29.1 PG (27.0-31.0) Mean Corpuscular Hemoglobin Concent 32.0 G/DL (32.0-36.0) 33.1 G/DL (32.0-36.0) 33.2 G/DL (32.0-36.0) Red Cell Distribution Width 16.2 % (11.6-14.8) H 14.1 % (11.6-14.8) 14.1 % (11.6-14.8) Platelet Count 303 K/UL (150-450) 265 K/UL (150-450) 288 K/UL (150-450) Mean Platelet Volume 5.0 FL (6.5-10.1) L 4.6 FL (6.5-10.1) L 4.9 FL (6.5-10.1) L Neutrophils (%) (Auto) % (45.0-75.0) % (45.0-75.0) % (45.0-75.0) Lymphocytes (%) (Auto) % (20.0-45.0) % (20.0-45.0) % (20.0-45.0) Monocytes (%) (Auto) % (1.0-10.0) % (1.0-10.0) % (1.0-10.0) Eosinophils (%) (Auto) % (0.0-3.0) % (0.0-3.0) % (0.0-3.0) Basophils (%) (Auto) % (0.0-2.0) % (0.0-2.0) % (0.0-2.0) Differential Total Cells Counted 100 100 Neutrophils % (Manual) 84 % (45-75) H 85 % (45-75) H Pending Lymphocytes % (Manual) 15 % (20-45) L 10 % (20-45) L Pending Monocytes % (Manual) 0 % (1-10) L 4 % (1-10) Eosinophils % (Manual) 1 % (0-3) 1 % (0-3) Basophils % (Manual) 0 % (0-2) 0 % (0-2) Band Neutrophils 0 % (0-8) 0 % (0-8) Platelet Estimate Adequate Adequate Pending Platelet Morphology Normal Normal Pending Hypochromasia 2+ 3+ Anisocytosis 1+ 1+ Sodium Level Pending Potassium Level Pending Chloride Level Pending Carbon Dioxide Level Pending Anion Gap 9 mmol/L (5-15) Blood Urea Nitrogen Pending Creatinine Pending Estimat Glomerular Filtration Rate Pending Glucose Level Pending Calcium Level Pending Phosphorus Level 2.1 MG/DL (2.5-4.9) L Magnesium Level 1.7 MG/DL (1.8-2.4) L Total Bilirubin 0.3 MG/DL (0.2-1.0) Aspartate Amino Transf (AST/SGOT) 16 U/L (15-37) Alanine Aminotransferase (ALT/SGPT) 17 U/L (12-78) Alkaline Phosphatase 57 U/L (46-116) Total Protein 5.7 G/DL (6.4-8.2) L Albumin 2.2 G/DL (3.4-5.0) L Globulin 3.5 g/dL Albumin/Globulin Ratio 0.6 (1.0-2.7) L Plan Problems: (1) Upper GI bleed Assessment & Plan: GI Bleed states blood noted in BM does not want colonoscopy recommend colonoscopy completed defer to GI psych eval thank you (2) Bowel obstruction Assessment & Plan: CT reviewed. patient with BM and flatus. no abd tenderness and no c/o pain now likely compression of bowel no n/v/f/c stable no acute surgical intervention planned okay for diet will follow with exams d/cp marion thank you Findings: Lack of enteric contrast administration limits assessment of the GI tract. There is a small to moderate-sized sliding-type hiatal hernia. The stomach is markedly distended with food and gas. The anatomy of the gastric outlet is not well visualized, but the duodenum is nondilated. No definite obstructive lesion is evident. There are mildly dilated gas-filled jejunal loops in the left upper quadrant. No definite transition point is evident, although the distal ileum appears to be nondilated.. There is mild rectal distention by feces, rectal diameter 6 cm. There is considerable retained stool throughout the colon. No definite evidence of colonic diverticulosis or diverticulitis. The appendix is not definitely visualized, but there are no definite findings to suggest acute appendicitis. There is a small fat-containing right inguinal hernia. There is slight skin thickening and infiltration of the subcutaneous fat in the retrococcygeal region and at the inferior aspect of the inner gluteal fold right of midline. There may be slight soft tissue irregularity as well. The liver demonstrates multiple cysts, as well as a few subcentimeter low- attenuation lesions which are too small to characterize. The gallbladder, bile ducts, pancreas, spleen, adrenals are unremarkable. The kidneys demonstrate a cyst on the left and bilateral subcentimeter low-attenuation lesions which are too small to characterize. No renal or ureteral calculi, hydronephrosis, or hydroureter. No retroperitoneal or mesenteric mass or adenopathy. No pelvic mass or adenopathy. There is mild bladder wall thickening. The included lung bases demonstrate some vague groundglass opacity bilaterally, as well as some scarring at the left lung base. The bones demonstrate mild degenerative changes of the lumbosacral junction. Impression: Limited assessment of the GI tract, due to lack of enteric contrast demonstration Markedly distended stomach. Suspect functional in nature given absence of obvious obstructing lesion, although occult obstructive lesion at the level of pylorus cannot be ruled out Mildly distended proximal small bowel loops. There is no definite transition point, but distal small bowel loops are nondistended. Likewise suspect functional in nature or on the basis of enteritis changes, but the possibility of partial obstruction at the level of the mid small bowel should be considered. Considerable colonic stool retention, possible mild rectal fecal impaction Slight soft tissue thickening in the retrococcygeal buttock region, could indicate early decubitus changes. Correlate with clinical findings Hepatic and left renal cysts. Subcentimeter low-attenuation renal and liver lesions, too small to characterize, most likely benign simple cysts. No further follow-up necessary Vague basilar pulmonary parenchymal groundglass opacity, nonspecific, could represent mild edema, COPD changes, inflammatory or postinflammatory changes, among other possibilities Evidence of chronic scarring at the left lung base Other findings as noted, including small fat-containing right inguinal hernia, small to moderate hiatal hernia, degenerative spondylosis Arron Barker Apr 12, 2019 12:54
--- NOTE | 2019-04-12 15:07 | Discharge Summary ---
Discharge Summary Hospital Course Date of Admission Apr 09, 2019 at 12:14 Date of Discharge Admitting Diagnosis UGIBLEED HPI Jovani Damico is a 59 year old male who was admitted on Apr 09, 2019 at 12:14 for Upper Gastrointestinal Bleed Hospital Course Patient was initially admitted for upper GI bleed, found to have hematemesis/ coffee-ground emesis. General surgery was consulted, stated no surgical intervention at this time, patient will likely need EGD. GI was consulted, EGD performed on 04/12 revealed esophagitis, gastritis, pyloric stenosis, biopsies were taken. Patient was started on PPIs Carafate. Patient currently stable, hemoglobin stable at this time, DC planning with GI/general surgery, stated patient is stable to be discharged home with PPI. Discussed with patient at length importance of continuing PPI and following up with PCP, psychiatry, and GI physician for biopsy results. Patient stated understanding that he will take his medications and follow-up. DC planning >30 mins. Discharge Medications Continued Medications: Pantoprazole Sodium (Protonix) 40 Mg Granpkt.dr 40 MG GT DAILY for 30 Days, #30 PKT 1 Refill Discharge Discharge Vital Signs Last Vital Signs Date Time Temp Pulse Resp B/P (MAP) Pulse Ox O2 Delivery O2 Flow Rate FiO2 04/12/19 12:00 Room Air 04/12/19 08:00 98.8 87 19 110/78 (89) 100 04/11/19 12:05 3 Discharge Disposition Patient was discharged to Discharge Diagnoses: (1) Upper GI bleed (2) Acute blood loss anemia (3) Hypokalemia (4) Schizophrenia Dionne Deal M.D. Apr 12, 2019 15:07
[2019-04-12] MEDS ORDERED: PROTONIX40 M2 GT ×2 (15:12→15:15)
--- NOTE | 2019-04-12 15:19 | Discharge Instructions ---
Discharge Instructions Discharge Instructions Diet: regular Activity: resume normal activities Follow Up Orders f/u w/PCP in 1 week, f/u GI Dr. Ojeda for biopsy results For Congestive Heart Failure Reminder Report to your physician any weight gain of 5 pounds or more in one week. Dionne Deal M.D. Apr 12, 2019 15:19
[2019-04-12] MEDS ORDERED: NS 275ml ONE (16:29)
[2019-04-12] MEDS ORDERED: D5NS 1000ml IV ONE (16:29)
[2019-04-12] MEDS ORDERED: Tubing IV Secondary IV ONE (16:29)
[2019-04-12] MEDS ORDERED: Tubing IV Blood Pump IV ONE (16:29)
--- NOTE | 2019-04-12 16:31 | NUR ---
Homeless Discharge: Patient is being discharged from medical care. Awake, alert and oriented x3. After care instructions, including referral to community resources were given. Patient verbalized understanding of after care instructions; at this time patient does not request medications, equipment or placement. Patient signed patient consent in the medical record for patient destination upon discharge. All medical devices such as IV, car wash attendant and ID band were removed. Patient ambulated out with all personal belongings with steady gait. Tap card provided. Original prescription given to the pt. Pt. verbalized he is going to his sisters house but refused for us to contact his sister. Pt. remain stable. Happy to be discharged and thankful to the staff.
[2019-04-12] MEDS ORDERED: Magnesium Oxide 400mg tab ORAL SCH (18:00)
--- NOTE | 2019-04-13 01:52 | Progress Note ---
DATE: 04/12/2019 SUBJECTIVE: The patient is in bed, being discharged today. The patient is doing well, and would like to be discharged. He is able to understand and communicate rationally. MENTAL STATUS EXAMINATION: Alert and oriented times self, place, and situation. Mood is neutral. Affect is flat. Thought process is confused. Thought content, no suicidal or homicidal ideation. ASSESSMENT: Stable. PLAN: 1. We will continue current medications. 2. Provide the patient with reality orientation and supportive therapy. Tamara Reed M.D. DR: Heaven JOB#: [id number] CC:
== END 2019-04-12 16:30 | disposition home or self-care (01) | DRG 872 ==
LOC: EDBD 10:12 → EMR 10:34 → 2W 12:14 → EDBEDREQ 13:05 → EDBEDREQSVC 13:05 → EDBEDREQ 13:15 → 2W 13:36
PROC: 30233N1 Transfusion of Nonautologous Red Blood Cells into Peripheral Vein, Percutaneous Approach (ICD-10-PCS; principal; 2019-04-11 11:32)
PROC: 0DB78ZX Excision of Stomach, Pylorus, Via Natural or Artificial Opening Endoscopic, Diagnostic (ICD-10-PCS; principal; 2019-04-11 11:32)
DX: A41.9 Sepsis, unspecified organism (principal); K56.609 Unspecified intestinal obstruction, unspecified as to partial versus complete obstruction; D62 Acute posthemorrhagic anemia; E87.1 Hypo-osmolality and hyponatremia; K31.1 Adult hypertrophic pyloric stenosis; K22.8 Other specified diseases of esophagus; E87.6 Hypokalemia; F20.9 Schizophrenia, unspecified; K20.9 Esophagitis, unspecified; K29.70 Gastritis, unspecified, without bleeding; Z59.0 Homelessness; K44.9 Diaphragmatic hernia without obstruction or gangrene; K59.00 Constipation, unspecified; K40.90 Unilateral inguinal hernia, without obstruction or gangrene, not specified as recurrent; K76.89 Other specified diseases of liver; N28.1 Cyst of kidney, acquired
CPT/HCPCS: 36415; 71045; 74177; 80048; 80053; 80307; 81003; 82607; 82728; 82746; 83540; 83550; 83690; 83735; 84100; 85007; 85025; 85610; 85730; 86850; 86900; 86901; 86920; 87081; 93005; 94003; 94150; 96361; 96365; 96366; 96368; 96375; 99291; J2405; J7030; J8499